=== PATIENT | female | born 1970 | race Caucasian/White ===

== ENCOUNTER → 2018-06-10 08:41 | Outpatient (CLI) | payer BC, SELFPAY | PROVIDERS: Family Provider Family Medicine; PCP Family Medicine; Visit Provider Internal Medicine | DX: I47.1 Supraventricular tachycardia (principal); R00.1 Bradycardia, unspecified; R06.09 Other forms of dyspnea; R07.89 Other chest pain; I48.0 Paroxysmal atrial fibrillation; J30.2 Other seasonal allergic rhinitis | CPT/HCPCS: 93017 ==

== ENCOUNTER 2020-04-24 16:10 | Emergency (ER) | payer BC, SELFPAY ==
[2020-04-24 17:00] VITALS: BP 123/73; PULSE 69; RESP 20; TEMP 36.8; O2SAT 98; BMI 30.9
--- NOTE | 2020-04-24 17:13 | HMH.EDUTC ---
[facility] Disposition Clinical Impression: Allergic reaction Qualifiers: Encounter type: initial encounter Qualified Code(s): T78.40XA - Allergy, unspecified, initial encounter Disposition: Home, Self-Care Condition on Discharge: Good Instructions: DI for General Allergic Reactions Additional Instructions: Avoid the offending substance. Follow up with your regular doctor. Take the steroids as directed. Don't start them until tomorrow since you had the shot here today. Take benedryl (diphenhydramine) regularly for the next couple of days. Be careful with the drowsiness side effect. IF YOU HAVE ANY WORSENING SYMPTOMS, SHORTNESS OF BREATH, WHEEZING, MOUTH SWELLING, ETC, RETURN IMMEDIATELY Prescriptions: methylPREDNISolone [Medrol] 4 mg PO DIRECTED 6 Days #21 tab.ds.pk Transmission Status: Received by [facility] Referrals: Lilli Villa [Primary Care Provider] - Time of Disposition: 17:19 Medical Decision Making - Medical Records Medical records reviewed: No: I reviewed the patient's medical records. - Rajinder Inquiry Pt receiving controlled substance: No Vital Signs: 04/24/20 17:00 04/24/20 17:15 Temperature 98.2 F 98.2 F Temperature Source Oral Pulse Rate 69 Pulse Rate [Right Brachial] 69 Respiratory Rate 20 20 Blood Pressure 123/73 Blood Pressure [Right Arm] 123/73 Blood Pressure Mean [Right Arm] 89 Blood Pressure Source [Right Arm] Automatic Cuff Blood Pressure Position [Right Arm] Sitting 02 Sat by Pulse Oximetry 98 Oxygen Delivery Method Room Air Orders (Tests/Meds): ED MEDICATIONS Discontinued Medications Generic Name Dose Route Start Last Admin Trade Name Lul PRN Reason Stop Dose Admin Methylprednisolone Sodium Succinate 125 mg 04/24/20 17:03 04/24/20 17:05 Solu-Medrol 125mg/2ml Vial IM 04/24/20 17:04 125 mg ONCE ONE Administration [facility] HPI - General Stated complaint: Possible reaction Time Seen by Provider: 04/24/20 17:13 Mode of Arrival: Ambulatory Source of Information: Patient Limitations: No Limitations Description of Symptoms (Recalled from Triage Doc. by RN): PATIENT C/O REDNESS, SWELLING, AND IRRITATION TO BILATERAL EYES HEENT Symptoms (Recalled from RN notes): Yes Resp Symptoms (Recalled from RN notes): No Skin Symptoms (Recalled from RN notes): No MS Symptoms (Recalled from RN notes): No Functional Status (Recalled from RN notes): WNL - History of Present Illness Provider Complaint: She c/o facial swelling around her eyes since approx 2 hours ago. She is allergic to cats. She went to her dad's house where he has several cats and she petted them. She denies any shortness of breath, wheezing, chest tightness, or mouth or lip swelling. - Related Data Home Medications Medication Instructions Recorded Confirmed aspirin 81 mg tablet,delayed 81 mg PO DAILY tab 06/08/18 release citalopram 40 mg tablet 40 mg PO DAILY tab 06/08/18 fexofenadine 180 mg tablet 180 mg PO DAILY tab 06/08/18 metoprolol succinate 50 mg 50 mg PO DAILY tab 06/08/18 tablet,extended release 24 hr montelukast 10 mg tablet 10 mg PO QPM 06/08/18 Previous Rx's Medication Instructions Recorded methylPREDNISolone [Medrol] 4 mg PO DIRECTED 6 Days #21 04/24/20 tab.ds.pk Allergies Allergy/AdvReac Type Severity Reaction Status Date / Time cephalexin [From Keflex] Allergy Mild Verified 06/08/18 11:12 Penicillins Allergy Mild Verified 06/08/18 11:12 - Worker's Comp Is this a Worker's Comp case?: No [facility] History - Hepatitis A Screen Drug use history?: No High risk sexual behaviors?: No History of sexually transmitted infection?: No Currently employed?: No Childcare worker?: No Do you have indoor plumbing?: Yes Do you have electricity?: Yes Attestation statement:: This patient has been screened for Hepatitis A risk factors. I have reviewed the patient's past medical history: Yes Medical History: Reports:: Palpitation
[2020-04-24 17:15] VITALS: BP 123/73; PULSE 69; RESP 20; TEMP 36.8; O2SAT 98
== END 2020-04-24 17:23 | disposition home or self-care (01) ==
PROVIDERS: Emergency Provider Nurse Practitioner Family; PCP Family Medicine
DX: J30.81 Allergic rhinitis due to animal (cat) (dog) hair and dander (principal); R00.2 Palpitations; Z88.0 Allergy status to penicillin; Z90.79 Acquired absence of other genital organ(s)
CPT/HCPCS: 96372; 99201

== ENCOUNTER → 2021-12-22 11:21 | Outpatient (CLI) | payer BC, SELFPAY | PROVIDERS: Visit Provider Nurse Practitioner | DX: U07.1 COVID-19 (principal) | CPT/HCPCS: C9803; U0003; U0005 ==

== ENCOUNTER → 2022-02-24 07:41 | Outpatient (CLI) | payer BC, SELFPAY ==
--- NOTE | 2022-02-24 07:42 | NM_ITS ---
APPROVED REPORT Exam: Nuclear Stress Test Indication: Chest pain, Family history Patient Location: Outpatient Stress Tech: Carolina Sims [place] Tech:Kaela Muniz, ARRT, RT (R)(N) Ht: 5 ft 4 in Wt: 190 lbs Bra Size: 42C HR: 61 bpm BP: 125/51 mmHg BSA: 1.91 m2 BMI: 32.6 History: Chest pain, Family history Procedure: Patient received a 0.4 mg of intravenous Lexiscan, resting heart rate 61 bpm, resting blood pressure 125/51 mmHg, with Lexiscan maximum heart rate achived was 93 bpm which is Less than 85 resting electrocardiogram shows sinus rhythm, with Lexiscan there is less than 1.5 mm % of the maximum predicted heart rate and blood pressure was 125/51 mmHg. With Lexiscan, patient denied any complaint of chest pain. Electrocardiogram ST segment depression noted from the baseline EKG. The EKG portion of the Lexiscan is nondiagnostic. Cardiac Stress and Resting SPECT Images: Cardiac Stress and Resting SPECT images were obtained using technetium 99m Myoview 32.5 mCi stress and 10.70 mCi at rest. Gated SPECT for analysis of segmental wall motion and calculation of the ejection fraction also done. Cardiac stress and resting SPECT images show uniform myocardial activity without segmental perfusion abnormality, compared to ejection fraction is 56% with no regional wall motion abnormality, right ventricle is normal size and contractility, there is transient ischemic dilatation of the left ventricle seen. Conclusion: 1. The EKG portion of the Lexiscan is nondiagnostic. 2. No scintigraphic evidence of reversible ischemia seen, computer derived ejection fraction is 56% with no regional wall motion abnormality, right ventricle is normal size and contractility, there is transient ischemic dilatation of the left ventricle seen, raising the concerns of presence of balanced ischemia, other causes for transient ischemic dilatation include hypertensive heart disease, microvascular disease and elevated left ventricular end-diastolic pressure. Clinical correlation is recommended. 3. Abnormal Lexiscan Myoview study. Electronically signed by : Thai Espinal MD 02/24/2022 19:03:51
--- NOTE | 2022-02-24 08:10 | CA_ITS ---
APPROVED REPORT EXAM: Comprehensive 2D, Doppler, and color-flow Echocardiogram Rerolling Machine Operator: Shakila Walters CRT Ht: 5 ft 4 in Wt: 193lbs BSA: 1.93 BP: 101/41 mmHg Indications: Chest Pain, Shortness of Breath, Palpitations 2D Dimensions LVOT 1.97 cm (M/F) 1.5-2.5 LA Volume 20.70 mL LA Volume Index 10.70 mL/m2 (M/F) 16-34 M-Mode Dimensions RVDd 1.94 cm (0.9-2.6) LA Diam 2.87 cm (1.9-4.0) LVDd 4.93 cm (3.5-5.7) Ao Diam 3.50 cm (2.0-3.7) LVDs 2.53 cm (3.5-5.7) IVSd 0.87 cm (0.6-1.1) PWd 0.53 cm (0.6-1.1) EF (Teich) 79.90% FS 48.70% EDV (Teich) 114.40 mL TAPSE 2.26 (<1.7) ESV (Teich) 23.00 mL LV Diastology E Decel Time 207.00 (160-240 msec) E/A Ratio 1.37 MED E' 7.10 (< 7 cm/sec) MED A' 7.10 cm/s E'/MED E' Ratio 11.37 (>14) LAT E' 9.50 (<10 cm/sec) LAT A' 9.20 cm/s E/LAT E' Ratio 8.49 (>14) Aortic Valve AO Peak GR. 6.80 mmHg Mitral Valve MV A Velocity 59.00 (40-130 cm/s) E/A Ratio 1.37 MV Decel. Time 207.00 (160-240 ms) Pulmonary Valve PV Peak Velocity 108.00 (50-150 cm/s) Tricuspid Valve TR P. Velocity 254.00 cm/s RAP Estimate 10.00 mmHg RVSP 35.70 mmHg Left Ventricle Left atrium is normal size, left ventricle is normal size, there is no concentric left ventricular hypertrophy, visually estimated ejection fraction 55% with no regional wall motion abnormality, diastolic parameters are within normal range. Right Ventricle Right atrium and right ventricular normal size and contractility. Aortic Valve Aortic valve is grossly normal there is no aortic stenosis or aortic insufficiency. Mitral Valve Mitral valve grossly normal, there is trace mitral regurgitation. Tricuspid Valve Tricuspid valve grossly normal, there is trace tricuspid regurgitation, tricuspid regurgitation jet velocity is inadequate for calculation of the right ventricular systolic pressure. Pulmonic Valve Pulmonic valve is poorly visualized. Great Vessels Aortic root is normal size. Inferior vena cava is normal size with normal inspiratory collapse. Pericardium No significant pericardial effusion. Conclusion 1. Normal left ventricular size, preserved left ventricular systolic function, visually estimated ejection fraction 55% with no regional wall motion abnormality, diastolic parameters are within normal range. 2. Trace mitral and tricuspid regurgitation. 3. No significant pericardial effusion noted. 4. Inferior vena cava is normal size with normal inspiratory collapse. Electronically signed by : Thai Espinal MD 02/24/2022 19:31:53
--- NOTE | 2022-02-24 09:06 | HMH.ITSHM ---
Current Home Medications as stated by this patient Kristy Jones or statement services representative. []MONTELUKAST METOPROLOL CITALOPRAM CETIRIZINE ASA
--- NOTE | 2022-02-24 09:22 | CA_ITS ---
APPROVED REPORT Exam: Pharmacologic Technologist: Carolina Huddleston, Ht: 5 ft 4 in Wt: 193 lbs BSA: 1.93 m2 HR: 62 bpm BP: 125/51 mmHg Medical History Medications: Aspirin,,,,, ZYRTEC,,,,, Celexa,,,,, Singulair,,,,, Metoprolol Succinate ER,,,,, Stress Test Details Test: LEXISCAN HR Resting HR: 61 bpm Max Heart Rate (APMHR): 167.751689 bpm Max HR Achieved: 93 bpm Target HR (85% APMHR): 141.372062 bpm % of APMHR: 55.69 Recovery HR: 75 bpm BP Resting BP: 125/51 mmHg Max BP: 125/51 mmHg Recovery BP: 118.0/69.0 mmHg ECG Resting ECG: NSR, T wave abn in lead III Clinical Exercise duration: 04:00 min Highest Stage Achieved: Stress ECG Conclusion Symptoms: Mild SOA & head discomfort. No CP. Arrhythmias/Ectopy: None. ST-T Changes: No significant changes. Conclusion: Unremarkable Lexiscan stress. Myoview images reported separately. Test Summary REST . . . . . . . Resting REST 02:36 . . 61 . 125/ 51 . . Stage 1 . . . . . . . Cardiolite injected Stage 1 01:00 . . 81 . . . . Stage 2 01:00 . . 85 . 112/ 70 . . Stage 3 01:00 . . 81 . 115/ 68 . . Stage 4 01:00 . . 76 . 116/ 70 . Stop exercise at 04:00 RECOVERY 01:00 . . 74 . . . . RECOVERY 02:00 . . 86 . 114/ 68 . . RECOVERY 03:00 . . 75 . 118/ 69 . . RECOVERY 03:15 . . 80 . 118/ 69 . . Electronically signed by : Thai Espinal MD 02/24/2022 19:00:56
== END ==
PROVIDERS: PCP Family Medicine; Visit Provider Physician Assistant
DX: R06.00 Dyspnea, unspecified (principal); R07.9 Chest pain, unspecified; I48.0 Paroxysmal atrial fibrillation; Z86.79 Personal history of other diseases of the circulatory system
CPT/HCPCS: 78452; 93017; 93306; A9502; J2785

== ENCOUNTER → 2022-03-03 09:36 | Outpatient (CLI) | payer BC, SELFPAY ==
[2022-03-03 10:46] LABS: Basophils # 0.1 K/mm3 (0-0.2); Basophils % 1.5 % (0.1-2.0); Eosinophils # 0.7 K/mm3 (0.0-0.4); Eosinophils % 9.9 % (0.1-12.0); Hematocrit 42.3 % (37.0-47.0); Hemoglobin 13.8 g/dL (12.2-16.2); Lymphocytes # 2.4 K/mm3 (0.7-4.5); Lymphocytes % 35.5 % (10-50); Mean Corpuscular HGB Conc 32.7 g/dL (31.8-35.4); Mean Corpuscular Hemoglobin 28.8 pg (27.0-31.2); Mean Corpuscular Volume 88.1 fl (81-99); Monocytes # 0.3 K/mm3 (0.1-1.0); Monocytes % 4.5 % (1.7-9.3); Neutrophils # 3.2 K/mm3 (1.8-7.8); Neutrophils % 48.7 % (37.0-80.0); Platelet Count 336 K/mm3 (142-424); Red Cell Distribution Width 13.6 % (11.5-17.5); White Blood Count 6.7 K/mm3 (4.8-10.8)
[2022-03-03 11:14] LABS: Blood Urea Nitrogen 13 mg/dl (7-17); Calcium 9.6 mg/dl (8.4-10.2); Carbon Dioxide 32 mmol/L (22.0-30.0); Estimated Glomerular Filt Rate 105 ml/min (>60); GFR (African American) 127 ML/MIN (>60); Glucose 99 mg/dl (74-100); Potassium 4.4 mmoL/L (3.5-5.1); Sodium 138 mmol/L (136-145)
[2022-03-03 11:44] LABS: Anion Gap 9.4 mEq/L (5-15); Chloride 101 mmol/L (98-107)
== END ==
PROVIDERS: PCP Family Medicine; Visit Provider Physician Assistant
DX: Z01.812 Encounter for preprocedural laboratory examination (principal); Z11.52 Encounter for screening for COVID-19; R06.00 Dyspnea, unspecified; R07.9 Chest pain, unspecified; I20.9 Angina pectoris, unspecified; R94.30 Abnormal result of cardiovascular function study, unspecified
CPT/HCPCS: 36415; 80048; 85025; C9803; U0003; U0005

== ENCOUNTER 2022-03-04 08:58 | Day surgery (SDC) | payer BC, SELFPAY ==
[2022-03-04] VITALS (12 sets, daily range): BP systolic 111–150; BP diastolic 69–100; PULSE 58–67; RESP 17–18; TEMP 36.7; O2SAT 93–97; BMI 32.9
--- NOTE | 2022-03-04 | IR_ITS ---
APPROVED REPORT Patient Location: Outpatient [employer] Applications Analyst: NAGI Tamez RT (R) PROCEDURES Left heart catheterization Left ventriculogram Selective coronary angiogram INDICATION Typical angina pectoris Informed consent was obtained prior to the procedure. COMPLICATIONS NONE Estimated Blood Loss: LESS THAN 10 ML TECHNIQUE One percent lidocaine used to anesthetize the right anterior aspect of the wrist. The right radial artery was accessed via the Seldinger technique. A 6 Uzbek sheath was placed in the right radial artery. 2.5 mg of verapamil, 800 mcg of nitroglycerin, 1mg Lidocaine and 5000 U Heparin were given through the arterial sheath. The papa catheter was also used to perform left heart catheterization, left ventriculogram and selective coronary angiogram. At the end of the procedure the sheath was removed good hemostasis was achieved using Traclet band, patient was transferred to the postop holding area in stable condition. ANGIOGRAPHIC RESULTS The left main artery Normal The left anterior descending artery Angiographically normal accompanied by ISRA II flow The circumflex artery Nondominant angiographically normal accompanied by ISRA II flow The right coronary artery Dominant angiographically normal accompanied by ISRA II flow The CABA ventriculogram reveals Normal 65% The left ventricular end-diastolic pressure 30 mmHg IMPRESSION Angiographically normal coronary arteries accompanied by ISRA II flow consistent with either endothelial dysfunction or more likely diastolic heart failure impeding coronary perfusion pressure Normal ejection fraction PLAN 1. Treatment of diastolic dysfunction which should alleviate the angina pectoris and improve coronary perfusion/flow 2. Risk factor modification 3. Recommend sleep study Electronically signed by : Leonid Ribera MD 03/04/2022 10:59:31
== END 2022-03-04 14:00 | disposition home or self-care (01) ==
LOC: CATHLAB 08:59
PROVIDERS: PCP Family Medicine; Visit Provider Internal Medicine
DX: I20.8 Other forms of angina pectoris (principal); R07.9 Chest pain, unspecified; R06.00 Dyspnea, unspecified; R94.30 Abnormal result of cardiovascular function study, unspecified; Z79.899 Other long term (current) drug therapy
CPT/HCPCS: 93458; 99152; C1725; C1760; C1769; J1644; Q9967

== ENCOUNTER 2022-07-26 09:27 | Emergency (ER) | payer BC, SELFPAY ==
[2022-07-26 09:52] VITALS: BP 130/80; PULSE 95; RESP 16; TEMP 37; O2SAT 98; BMI 31.4
[2022-07-26 09:55] LABS: UTC Strep Screen (Rapid) Negative (Negative)
--- NOTE | 2022-07-26 10:15 | EXP.UTC ---
Discharge Plan Disposition Patient Disposition: Home, Self-Care Condition: Good Prescriptions Prescriptions: New clindamycin HCl 300 mg capsule 300 mg PO Q8H 10 Days Qty: 30 0RF ondansetron 4 mg Tablet,Disintegrating 4 mg PO Q8H PRN (Reason: Nausea) Qty: 20 0RF No Action montelukast [Singulair] 10 mg tablet 10 mg PO QPM aspirin [Adult Low Dose Aspirin] 81 mg tablet,delayed release (DR/EC) 81 mg PO DAILY metoprolol succinate 50 mg tablet extended release 24 hr 50 mg PO DAILY citalopram [Celexa] 40 mg tablet 20 mg PO DAILY Zyrtec 10 mg capsule 10 mg PO DAILY PRN furosemide [Lasix] 40 mg tablet 40 mg PO DAILY spironolactone [Aldactone] 100 mg tablet 100 mg PO DAILY Referrals Follow up/Referrals: Malcom Villa MD [Primary Care Provider] - See instructions Activity Restrictions/Add. Instructions Additional Instructions/Restrictions: Drink plenty of fluids. Take tylenol or ibuprofen for pain or fever. Take the medications as directed. Follow up with your regular doctor. GO TO THE ER FOR ANY WORSENING SYMPTOMS Throw your tooth brush away and get a new one. Clinical Impressions Clinical Impression: Strep throat Instructions Patient Instructions: DI for Strep Throat Discharge ED Provider: Chirag Sahu [facility] General Stated complaint: sore throat Mode of Arrival: Ambulatory Source of Information: Patient Limitations: No Limitations Time Seen by Provider: 07/26/22 10:11 Description of Symptoms (Recalled from Triage Doc. by RN): pt c/o sore throat since yesterday HEENT Symptoms (Recalled from RN notes): Yes Resp Symptoms (Recalled from RN notes): No Skin Symptoms (Recalled from RN notes): No MS Symptoms (Recalled from RN notes): No Functional Status (Recalled from RN notes): n/a History of Present Illness Provider Complaint: SHe has had a cough, low grade fever and she has felt bad for the past 2 days. Related Data Home Medications Medication Instructions Recorded Confirmed aspirin 81 mg tablet,delayed 81 mg PO DAILY 06/08/18 03/26/22 release (Adult Low Dose Aspirin) metoprolol succinate 50 mg 50 mg PO DAILY 06/08/18 03/26/22 tablet,extended release 24 hr montelukast 10 mg tablet 10 mg PO QPM 06/08/18 03/26/22 (Singulair) cetirizine 10 mg capsule (Zyrtec) 10 mg PO DAILY PRN 02/11/22 03/26/22 citalopram 40 mg tablet (Celexa) 20 mg PO DAILY 02/11/22 03/26/22 furosemide 40 mg tablet (Lasix) 40 mg PO DAILY 03/26/22 03/26/22 spironolactone 100 mg tablet 100 mg PO DAILY 03/26/22 03/26/22 (Aldactone) Previous Rx's Medication Instructions Recorded clindamycin HCl 300 mg capsule 300 mg PO Q8H 10 days #30 caps 07/26/22 ondansetron 4 mg disintegrating 4 mg PO Q8H PRN Nausea #20 tabs 07/26/22 tablet Allergies Allergy/AdvReac Type Severity Reaction Status Date / Time cephalexin [From Keflex] Allergy Mild Verified 07/26/22 09:59 Penicillins Allergy Mild Verified 07/26/22 09:59 Worker's Comp Is this a Worker's Comp case?: No PFSH PFSH Social History Smoking Status: Never smoker alcohol intake: never substance use type: denies use current occupational status: employed household members: spouse housing: house caffeine: No ROS Obtained: Yes All systems reviewed & no additional complaints except as documented Constitutional Constitutional: Reports chills and Reports fever(s) Eyes Eyes: Denies eye discharge ENT Ears, Nose, Mouth, and Throat: Reports as per HPI Cardiovascular Cardiovascular: Denies chest pain Respiratory Respiratory: Denies chest congestion and Reports cough Gastrointestinal Gastrointestingal: Reports nausea; Denies abdominal pain, constipation, cramping, diarrhea or vomiting Musculoskeletal Musculoskeletal: Denies arthralgias Integumentary/Breasts Skin/Breast: Denies rash Neurologic Neurologic: Denies paresthes
[2022-07-26 10:31] VITALS: BP 130/80; PULSE 95; RESP 16; TEMP 37
== END 2022-07-26 10:34 | disposition home or self-care (01) ==
LOC: ER 09:29 → UTC 09:31
PROVIDERS: Emergency Provider Nurse Practitioner Family; PCP Family Medicine
DX: J02.9 Acute pharyngitis, unspecified (principal); R50.9 Fever, unspecified; R05.9 Cough, unspecified; R11.0 Nausea; Z79.82 Long term (current) use of aspirin; Z79.899 Other long term (current) drug therapy; Z88.0 Allergy status to penicillin; Z88.8 Allergy status to other drugs, medicaments and biological substances
CPT/HCPCS: 87880; 99213; G0463

== ENCOUNTER → 2022-09-24 10:05 | Outpatient (CLI) | payer BC, SELFPAY ==
[2022-09-24 11:24] LABS: Potassium 4.7 mmoL/L (3.5-5.1); Sodium 139 mmol/L (136-145)
[2022-09-24 11:25] LABS: Chloride 101 mmol/L (98-107)
[2022-09-24 11:27] LABS: Anion Gap 11.7 mEq/L (5-15); Calcium 9.2 mg/dl (8.4-10.2); Carbon Dioxide 31 mmol/L (22.0-30.0); Glucose 85 mg/dl (74-100)
[2022-09-24 11:28] LABS: Blood Urea Nitrogen 10 mg/dl (7-17); Estimated Glomerular Filt Rate 104 ml/min (>60); GFR (African American) 126 ML/MIN (>60)
== END ==
PROVIDERS: PCP Internal Medicine Adolescent Medicine; Visit Provider Physician Assistant
DX: I51.89 Other ill-defined heart diseases (principal)
CPT/HCPCS: 36415; 80048

== ENCOUNTER 2022-12-13 09:35 | Emergency (ER) | payer BC, SELFPAY ==
[2022-12-13 09:36] VITALS: BP 121/70; PULSE 71; RESP 20; TEMP 36.6; O2SAT 99; BMI 33.6
--- NOTE | 2022-12-13 09:58 | EXP.UTC ---
Discharge Plan Disposition Patient Disposition: Home, Self-Care Condition: Good Prescriptions Prescriptions: New phenazopyridine 200 mg Tablet 200 mg PO TID Qty: 6 0RF prednisone [prednisone] 20 mg tablet 20 mg PO BID 3 Days Qty: 6 0RF ondansetron 4 mg Tablet,Disintegrating 4 mg PO Q8H PRN (Reason: Nausea) Qty: 12 0RF sulfamethoxazole-trimethoprim [Bactrim DS] 800-160 mg Tablet 1 tab PO BID Qty: 14 0RF No Action montelukast [Singulair] 10 mg tablet 10 mg PO QPM aspirin [Adult Low Dose Aspirin] 81 mg tablet,delayed release (DR/EC) 81 mg PO DAILY metoprolol succinate 50 mg tablet extended release 24 hr 50 mg PO DAILY citalopram [Celexa] 40 mg tablet 20 mg PO DAILY Zyrtec 10 mg capsule 10 mg PO DAILY furosemide [Lasix] 40 mg tablet 40 mg PO DAILY PRN (Reason: edema) Qty: 90 3RF spironolactone [Aldactone] 100 mg tablet 100 mg PO DAILY Qty: 90 1RF Referrals Follow up/Referrals: Adams Nichole MD [Primary Care Provider] - See instructions Activity Restrictions/Add. Instructions Additional Instructions/Restrictions: Drink plenty of fluids. Take tylenol or ibuprofen for pain or fever. Take the medications as directed. Follow up with your regular doctor. GO TO THE ER FOR ANY WORSENING SYMPTOMS The pyridium will make your urine turn orange, this is an expected side effect. It will stain your clothes if it comes into contact with them. We will culture the urine. That will tell what bacteria is causing your infection and which antibiotics will treat it best. Sometimes the first antibiotic we prescribe turns out to not work against different bacteria. So, make sure you follow up within 3 days if you are not getting better. Clinical Impressions Clinical Impression: UTI (urinary tract infection), Sinusitis Instructions Patient Instructions: Urinary Tract Infection, Urine Culture, DI for Sinusitis, DI for Urinary Tract Infection (UTI), Phenazopyridine Discharge ED Provider: Chirag Sahu [facility] General Stated complaint: pain when urinating,frequency, headache,drainage Time Seen by Provider: 12/13/22 09:58 History of Present Illness Provider Complaint: She states that for the past 3 days she has had burning with urination, urinary frequency, and low back pain. She has also has had sinus congestion, sore throat and a cough. Related Data Home Medications Medication Instructions Recorded Confirmed aspirin 81 mg tablet,delayed 81 mg PO DAILY 06/08/18 09/24/22 release (Adult Low Dose Aspirin) metoprolol succinate 50 mg 50 mg PO DAILY 06/08/18 09/24/22 tablet,extended release 24 hr montelukast 10 mg tablet 10 mg PO QPM 06/08/18 09/24/22 (Singulair) citalopram 40 mg tablet (Celexa) 20 mg PO DAILY 02/11/22 09/24/22 cetirizine 10 mg capsule (Zyrtec) 10 mg PO DAILY 09/24/22 09/24/22 Previous Rx's Medication Instructions Recorded furosemide 40 mg tablet (Lasix) 40 mg PO DAILY PRN edema #90 tabs 09/24/22 spironolactone 100 mg tablet 100 mg PO DAILY #90 tabs 11/05/22 (Aldactone) ondansetron 4 mg disintegrating 4 mg PO Q8H PRN Nausea #12 tabs 12/13/22 tablet phenazopyridine 200 mg tablet 200 mg PO TID #6 tabs 12/13/22 prednisone 20 mg tablet 20 mg PO BID 3 days #6 tabs 12/13/22 sulfamethoxazole 800 1 tab PO BID #14 tabs 12/13/22 mg-trimethoprim 160 mg tablet (Bactrim DS) Allergies Allergy/AdvReac Type Severity Reaction Status Date / Time cephalexin [From Keflex] Allergy Mild Verified 12/13/22 10:01 Penicillins Allergy Mild Verified 12/13/22 10:01 [facility] Disclaimer: The information contained in this section may have been updated after the patient was seen, as this information can be updated by other users. Social History Smoking Status: Never smoker alcohol intake: never substance use type: denies use current occupational status: employed [employer]
[2022-12-13 10:01] LABS: Apearance,Urine Clear (Clear); Color,Urine Yellow (Yellow)
[2022-12-13 10:02] LABS: Bilirubin,Urine Negative (Negative); Blood, Urine Trace (Negative); Glucose,Urine (UA) Negative (Negative); Ketones,Urine Negative (Negative); Protein,Urine Negative (Negative); Specific Gravity, Urine 1.005 (1.005-1.030); UTC Leukocyte Esterase,Urine 3+ (Negative); UTC Nitrate,Urine Negative (Negative); Urobilinogen,Urine 0.2 EU/dl (0.2)
[2022-12-13 10:30] VITALS: BP 121/70; PULSE 71; RESP 19; TEMP 36.6; O2SAT 99
== END 2022-12-13 10:30 | disposition home or self-care (01) ==
PROVIDERS: Emergency Provider Nurse Practitioner Family; PCP Internal Medicine Adolescent Medicine
DX: N39.0 Urinary tract infection, site not specified (principal); J32.9 Chronic sinusitis, unspecified
CPT/HCPCS: 81003; 87086; 87088; 87186; 99212; 99213; G0463

== ENCOUNTER → 2023-02-16 08:07 | Outpatient (CLI) | payer BC, SELFPAY ==
[2023-02-16 08:30] LABS: Basophils # 0.1 K/mm3 (0-0.2); Basophils % 1.3 % (0.1-2.0); Eosinophils # 0.8 K/mm3 (0.0-0.4); Eosinophils % 10.9 % (0.1-12.0); Hematocrit 42.7 % (37.0-47.0); Hemoglobin 13.6 g/dL (12.2-16.2); Lymphocytes # 2.4 K/mm3 (0.7-4.5); Lymphocytes % 30.8 % (10-50); Mean Corpuscular HGB Conc 31.7 g/dL (31.8-35.4); Mean Corpuscular Hemoglobin 27.4 pg (27.0-31.2); Mean Corpuscular Volume 86.4 fl (81-99); Mean Platelet Volume 8.7 fl (7.4-10.4); Monocytes # 0.4 K/mm3 (0.1-1.0); Monocytes % 5.6 % (1.7-9.3); Neutrophils # 3.9 K/mm3 (1.8-7.8); Neutrophils % 51.3 % (37.0-80.0); Platelet Count 378 K/mm3 (142-424); Red Blood Count 4.94 M/mm3 (4.20-5.40); Red Cell Distribution Width 13.7 % (11.5-17.5); White Blood Count 7.6 K/mm3 (4.8-10.8)
[2023-02-16 08:48] LABS: Glucose,Fasting 106 mg/dl (74-100)
[2023-02-16 08:51] LABS: Hemoglobin A1C 5.8 % (4.0-6.0)
[2023-02-16 09:05] LABS: Alanine Aminotransferase 40 U/L (12-78); Albumin Level 4.2 g/dl (3.5-5.0); Albumin/Globulin Ratio 1.5 (1.1-1.8); Alkaline Phosphatase 127 U/L (38-126); Anion Gap 11.7 mEq/L (5-15); Aspartate Amino Transferase 33 U/L (14-36); Bilirubin,Total 0.5 mg/dl (0.2-1.3); Blood Urea Nitrogen 9 mg/dl (7-17); Carbon Dioxide 28 mmol/L (22.0-30.0); Chloride 104 mmol/L (98-107); Estimated Glomerular Filt Rate 129 ml/min (>60); GFR (African American) 156 ML/MIN (>60); Globulin 2.8 g/dL (1.3-3.2); Glucose 101 mg/dl (74-100); Potassium 4.7 mmoL/L (3.5-5.1); Sodium 139 mmol/L (136-145)
[2023-02-16 09:22] LABS: 25-OH Vitamin D, Total 25.6 ng/mL (30-100)
[2023-02-16 09:24] LABS: Free Thyroxine Index 1.6 ug/dL (5.93-13.13); T4 (Thyroxine) 6.1 ug/dl (5.53-11.0); Triiodothryronine (T3) Uptake 27 % (23.5-40.5)
[2023-02-16 09:36] LABS: Thyroid Stimulating Hormone 1.91 uIU/mL (0.465-4.68)
[2023-02-16 09:56] LABS: Vitamin B12 225 pg/mL (239-931)
[2023-02-16 10:35] LABS: Glucose 1 Hour 211 mg/dL (74-100)
[2023-02-16 11:21] LABS: Glucose 2 Hour 171 mg/dL (74-100)
[2023-02-16 12:55] LABS: Glucose 3 Hour 82 mg/dL (74-100)
[2023-02-17 12:06] LABS: Insulin Level Total 25.6 uIU/mL (2.6-24.9)
== END ==
PROVIDERS: PCP Internal Medicine Adolescent Medicine; Visit Provider Internal Medicine Adolescent Medicine
DX: L65.9 Nonscarring hair loss, unspecified (principal); Z86.39 Personal history of other endocrine, nutritional and metabolic disease
CPT/HCPCS: 36415; 80053; 82306; 82607; 82951; 83036; 83525; 84436; 84443; 84479; 85025

== ENCOUNTER 2023-06-12 09:37 | Emergency (ER) | payer BC, SELFPAY ==
[2023-06-12 09:38] VITALS: BP 114/77; PULSE 85; RESP 18; TEMP 37; O2SAT 95; BMI 33.7
--- NOTE | 2023-06-12 10:07 | EXP.UTC ---
Discharge Plan Disposition Patient Disposition: Home, Self-Care Condition: Good Prescriptions Prescriptions: No Action montelukast [Singulair] 10 mg tablet 10 mg PO QPM aspirin [Adult Low Dose Aspirin] 81 mg tablet,delayed release (DR/EC) 81 mg PO DAILY metoprolol succinate 50 mg tablet extended release 24 hr 50 mg PO DAILY Zyrtec 10 mg capsule 10 mg PO DAILY furosemide [Lasix] 40 mg tablet 40 mg PO DAILY PRN (Reason: edema) Qty: 90 3RF bupropion HCl 150 mg tablet extended release 24 hr 150 mg PO DAILY Wegovy 1 mg/0.5 mL pen injector 1 mg SQ Q7D Qty: 2 0RF Vraylar 1.5 mg capsule 1.5 mg PO DAILY citalopram 20 mg tablet 20 mg PO DAILY spironolactone 25 mg tablet 25 mg PO DAILY Qty: 90 1RF ondansetron 4 mg Tablet,Disintegrating 4 mg PO Q8H PRN (Reason: Nausea) Qty: 12 0RF Referrals Follow up/Referrals: Adams Nichole MD [Primary Care Provider] - See instructions Activity Restrictions/Add. Instructions Additional Instructions/Restrictions: Drink plenty of fluids. Take tylenol for pain or fever. Follow up with your regular doctor. GO TO THE ER FOR ANY WORSENING SYMPTOMS Clinical Impressions Clinical Impression: Viral syndrome Instructions Patient Instructions: DI for Viral Syndrome Discharge ED Provider: Chirag Sahu [facility] [place] HPI General Stated complaint: Sore Throat, cough Mode of Arrival: Ambulatory Source of Information: Patient Limitations: No Limitations Time Seen by Provider: 06/12/23 10:07 Description of Symptoms (Recalled from Triage Doc. by RN): Patient reports sore throat, cough and runny nose since yesterday. States she did have the shingles vaccine on Wednesday but thinks this is not related. HEENT Symptoms (Recalled from RN notes): Yes Resp Symptoms (Recalled from RN notes): No Skin Symptoms (Recalled from RN notes): No MS Symptoms (Recalled from RN notes): No Functional Status (Recalled from RN notes): wnl History of Present Illness Provider Complaint: She states that for the past 4 days she has felt achy and had sinus congestion. Related Data Home Medications Medication Instructions Recorded Confirmed aspirin 81 mg tablet,delayed 81 mg PO DAILY 06/08/18 05/26/23 release (Adult Low Dose Aspirin) metoprolol succinate 50 mg 50 mg PO DAILY 06/08/18 05/26/23 tablet,extended release 24 hr montelukast 10 mg tablet 10 mg PO QPM 06/08/18 05/26/23 (Singulair) cetirizine 10 mg capsule (Zyrtec) 10 mg PO DAILY 09/24/22 05/26/23 cariprazine 1.5 mg capsule 1.5 mg PO DAILY 03/25/23 05/26/23 (Vraylar) citalopram 20 mg tablet 20 mg PO DAILY 03/25/23 05/26/23 bupropion HCl 150 mg 24 hr tablet, 150 mg PO DAILY 05/26/23 05/26/23 extended release Previous Rx's Medication Instructions Recorded furosemide 40 mg tablet (Lasix) 40 mg PO DAILY PRN edema #90 tabs 09/24/22 ondansetron 4 mg disintegrating 4 mg PO Q8H PRN Nausea #12 tabs 12/13/22 tablet spironolactone 25 mg tablet 25 mg PO DAILY #90 tabs 03/25/23 semaglutide (weight loss) 1 mg/0.5 1 mg (0.5 mL) SQ Q7D #2 mL 05/26/23 mL subcutaneous pen injector (Annabel) Allergies Allergy/AdvReac Type Severity Reaction Status Date / Time cephalexin [From Keflex] Allergy Mild Verified 05/26/23 11:23 Penicillins Allergy Mild Verified 05/26/23 11:23 Worker's Comp Is this a Worker's Comp case?: No [facility] Disclaimer: The information contained in this section may have been updated after the patient was seen, as this information can be updated by other users. Social History Smoking Status: Never smoker alcohol intake: never substance use type: denies use current occupational status: employed Travel in the last 8 weeks: None household members: spouse housing: house caffeine: No ROS Obtained: Yes All systems reviewed & no additional complaints except as documented [employer]
[2023-06-12 10:09] LABS: UTC Strep Screen (Rapid) Negative (Negative)
[2023-06-12 10:27] VITALS: BP 114/77; PULSE 85; RESP 18; TEMP 37; O2SAT 95
== END 2023-06-12 10:28 | disposition home or self-care (01) ==
PROVIDERS: Emergency Provider Nurse Practitioner Family; PCP Internal Medicine Adolescent Medicine
DX: B34.9 Viral infection, unspecified (principal); R05.9 Cough, unspecified; R09.81 Nasal congestion
CPT/HCPCS: 87880; 99212; 99213; G0463

== ENCOUNTER 2023-06-27 12:31 | Emergency (ER) | payer BC, SELFPAY ==
[2023-06-27 12:32] VITALS: BP 126/70; PULSE 70; RESP 18; TEMP 36.8; O2SAT 98; BMI 34.3
--- NOTE | 2023-06-27 13:04 | EXP.UTC ---
Discharge Plan Disposition Patient Disposition: Home, Self-Care Condition: Good Prescriptions Prescriptions: New methylprednisolone 4 mg Tablets,Dose Pack 4 mg PO DIRECTED Qty: 21 0RF triamcinolone acetonide 0.1 % cream 1 applic topical BID PRN (Reason: itching) Qty: 30 0RF No Action montelukast [Singulair] 10 mg tablet 10 mg PO QPM aspirin [Adult Low Dose Aspirin] 81 mg tablet,delayed release (DR/EC) 81 mg PO DAILY metoprolol succinate 50 mg tablet extended release 24 hr 50 mg PO DAILY Zyrtec 10 mg capsule 10 mg PO DAILY furosemide [Lasix] 40 mg tablet 40 mg PO DAILY PRN (Reason: edema) Qty: 90 3RF bupropion HCl 150 mg tablet extended release 24 hr 150 mg PO DAILY Wegovy 1 mg/0.5 mL pen injector 1 mg SQ Q7D Qty: 2 0RF Vraylar 1.5 mg capsule 1.5 mg PO DAILY citalopram 20 mg tablet 20 mg PO DAILY spironolactone 25 mg tablet 25 mg PO DAILY Qty: 90 1RF ondansetron 4 mg Tablet,Disintegrating 4 mg PO Q8H PRN (Reason: Nausea) Qty: 12 0RF Referrals Follow up/Referrals: Adams Nichole MD [Primary Care Provider] - See instructions Activity Restrictions/Add. Instructions Additional Instructions/Restrictions: Try to identify and avoid contact with the offending substance. Don't put the topical steroids (triamcinolone) on your face or your groin. Follow up with your regular doctor. GO TO THE ER FOR ANY WORSENING SYMPTOMS OR CONCERNS Clinical Impressions Clinical Impression: Allergic reaction Instructions Patient Instructions: Methylprednisolone Discharge ED Provider: Chirag Sahu [facility] General Stated complaint: rash on belly and side Time Seen by Provider: 06/27/23 13:04 History of Present Illness Provider Complaint: She states that for the past 3 days she has had an itchy rash on her abdomen. She denies any known exposure to any allergens. Related Data Home Medications Medication Instructions Recorded Confirmed aspirin 81 mg tablet,delayed 81 mg PO DAILY 06/08/18 05/26/23 release (Adult Low Dose Aspirin) metoprolol succinate 50 mg 50 mg PO DAILY 06/08/18 05/26/23 tablet,extended release 24 hr montelukast 10 mg tablet 10 mg PO QPM 06/08/18 05/26/23 (Singulair) cetirizine 10 mg capsule (Zyrtec) 10 mg PO DAILY 09/24/22 05/26/23 cariprazine 1.5 mg capsule 1.5 mg PO DAILY 03/25/23 05/26/23 (Vraylar) citalopram 20 mg tablet 20 mg PO DAILY 03/25/23 05/26/23 bupropion HCl 150 mg 24 hr tablet, 150 mg PO DAILY 05/26/23 05/26/23 extended release Previous Rx's Medication Instructions Recorded furosemide 40 mg tablet (Lasix) 40 mg PO DAILY PRN edema #90 tabs 09/24/22 ondansetron 4 mg disintegrating 4 mg PO Q8H PRN Nausea #12 tabs 12/13/22 tablet spironolactone 25 mg tablet 25 mg PO DAILY #90 tabs 03/25/23 semaglutide (weight loss) 1 mg/0.5 1 mg (0.5 mL) SQ Q7D #2 mL 05/26/23 mL subcutaneous pen injector (Sky StoragelindaFirethorn) methylprednisolone 4 mg tablets in 4 mg PO DIRECTED #21 tabs 06/27/23 a dose pack triamcinolone acetonide 0.1 % 1 applic topical BID PRN itching 06/27/23 topical cream #30 grams Allergies Allergy/AdvReac Type Severity Reaction Status Date / Time cephalexin [From Keflex] Allergy Mild Verified 05/26/23 11:23 Penicillins Allergy Mild Verified 05/26/23 11:23 PFSH PFSH Disclaimer: The information contained in this section may have been updated after the patient was seen, as this information can be updated by other users. Social History Smoking Status: Never smoker alcohol intake: never substance use type: denies use current occupational status: employed Travel in the last 8 weeks: None household members: spouse housing: house caffeine: No ROS Obtained: Yes All systems reviewed & no additional complaints except as documented Constitutional Constitutional: Denies chills and Denies fever(s) Eye
[2023-06-27 13:40] VITALS: BP 126/70; PULSE 70; RESP 18; TEMP 36.8; O2SAT 98
== END 2023-06-27 13:41 | disposition home or self-care (01) ==
PROVIDERS: Emergency Provider Nurse Practitioner Family; PCP Internal Medicine Adolescent Medicine
DX: T78.40XA Allergy, unspecified, initial encounter (principal)
CPT/HCPCS: 99212; 99214; G0463

== ENCOUNTER → 2023-07-20 10:10 | Outpatient (POV) | payer BC, SELFPAY | PROVIDERS: Visit Provider Specialist/Technologist | DX: Z00.00 Encounter for general adult medical examination without abnormal findings (principal) ==

== ENCOUNTER → 2023-10-07 09:23 | Outpatient (CLI) | payer BC, SELFPAY ==
--- NOTE | 2023-10-07 09:26 | XR_ITS ---
FINAL REPORT TECHNIQUE: Bone densitometry calculations of the lumbar spine, right hip and left hip were obtained. CLINICAL HISTORY: POST MENOPAUSAL FINDINGS: Using L1-4, the bone mineral density of the spine is 0.838 g/cm2, corresponding to T-score of -1.9 and a Z score of -0.8. This is within the range of osteopenia. Using the left hip, the bone mineral density of the femoral neck is 0.759 g/cm2, corresponding to a T-score of -0.8 and a Z-score of 0.2. This is within the range of normal. Using the right hip, the bone mineral density of the femoral neck is 0.788 g/cm2, corresponding to a T-score of -0.5 and a Z-score of 0.5. This is within the range of normal. FRAX 10 year fracture risk is 5.3% for a hip fracture and 0.2% for a major osteoporotic fracture. NOTE: T-score: Standard deviation compared with peak bone mass of young adult mean. *Following the recommendations of the International Society of Bone densitometry, classification of hip BMD is based on the lower of two T-scores; total hip or femoral neck. IMPRESSION: 1. Bone mineral density of the lumbar spine within the range of osteopenia. 2. Bone mineral density of the left femoral neck within the range of normal. 3. Bone mineral density of the right femoral neck within the range of normal. Reviewed, Interpreted and Dictated by Sumi Andrade MD Transcribed by Dulce Ellis Authenticated and [facility]
== END ==
LOC: RAD 09:24
PROVIDERS: PCP Internal Medicine Adolescent Medicine; Visit Provider Internal Medicine Adolescent Medicine
DX: Z78.0 Asymptomatic menopausal state (principal)
CPT/HCPCS: 77080

== ENCOUNTER → 2023-11-03 08:08 | Outpatient (CLI) | payer BC, SELFPAY ==
--- NOTE | 2023-11-03 08:16 | MM_ITS ---
PROCEDURE INFORMATION: Exam: MG Bilateral Screening 3D Mammography Exam date and time: 11/03/2023 8:07 AM Age: 53 years old Clinical indication: Screening examination TECHNIQUE: Imaging protocol: Bilateral Screening tomosynthesis and 2D mammography including computer-aided detection (CAD) when performed. COMPARISON: 1. MG MARIN SCRN MAMMO W/CAD BILAT 08/19/2022 8:47 AM 2. MG MARIN SCRN MAMMO W/CAD BILAT 02/26/2021 8:30 AM FINDINGS: MAMMOGRAPHY: Breast composition: There are scattered areas of fibroglandular density. Mass: None. Architectural distortion: None. Calcifications: No suspicious calcifications. Asymmetric density: None. Skin thickening: None. Axillary adenopathy: None. IMPRESSION: No mammographic evidence of malignancy. Annual screening is recommended unless otherwise clinically indicated. ASSESSMENT: BI-RADS Category 1: Negative
== END ==
PROVIDERS: PCP Internal Medicine Adolescent Medicine; Visit Provider Obstetrics & Gynecology Gynecology
DX: Z12.31 Encounter for screening mammogram for malignant neoplasm of breast (principal)
CPT/HCPCS: 77063; 77067

== ENCOUNTER 2024-11-25 12:56 | Emergency (ER) | payer BC, SELFPAY ==
[2024-11-25 13:52] VITALS: BP 122/62; PULSE 74; RESP 20; TEMP 36.8; O2SAT 97; BMI 31.4
--- NOTE | 2024-11-25 14:08 | EXP.UTC ---
Discharge Plan Disposition Patient Disposition: Home, Self-Care Condition: Good Prescriptions Prescriptions: New benzonatate 100 mg capsule 100 mg PO TIDP PRN (Reason: Cough) Qty: 30 0RF methylprednisolone 4 mg Tablets,Dose Pack 4 mg PO DIRECTED 6 Days Qty: 21 0RF Rx Instructions: Take 1 pack as directed for 6 days azithromycin [Zithromax] 250 mg tablet 250 mg PO UD DOSE PK Qty: 6 0RF Rx Instructions: Take two (2) tablets today, then one (1) tablet days #2 thru #5 No Action montelukast [Singulair] 10 mg tablet 10 mg PO QPM aspirin [Adult Low Dose Aspirin] 81 mg tablet,delayed release (DR/EC) 81 mg PO DAILY metoprolol succinate 50 mg tablet extended release 24 hr 50 mg PO DAILY Zyrtec 10 mg capsule 10 mg PO DAILY furosemide [Lasix] 40 mg tablet 40 mg PO DAILY PRN (Reason: edema) Qty: 90 3RF bupropion HCl 150 mg tablet extended release 24 hr 150 mg PO DAILY Wegovy 1 mg/0.5 mL pen injector 1 mg SQ Q7D Qty: 2 0RF estradiol 0.01 % (0.1 mg/gram) cream 1 appful vaginal .Biweekly Patient Comments: USE DIRECTED intravaginally TWICE A WEEK Vraylar 1.5 mg capsule 1.5 mg PO DAILY citalopram 20 mg tablet 20 mg PO DAILY spironolactone 25 mg tablet 25 mg PO DAILY Qty: 90 3RF triamcinolone acetonide 0.1 % cream 1 applic topical BID PRN (Reason: itching) Qty: 30 0RF Referrals Follow up/Referrals: Adams Nichole MD [Primary Care Provider] - See instructions Activity Restrictions/Add. Instructions Additional Instructions/Restrictions: Drink plenty of fluids. Take tylenol or ibuprofen for pain or fever. Take the medications as directed. Follow up with your regular doctor. GO TO THE ER FOR ANY WORSENING SYMPTOMS Clinical Impressions Clinical Impression: Sinusitis, Bronchitis Instructions Patient Instructions: Sinusitis, DI for Sinusitis Print Language Print Language: Vincentian Discharge ED Provider: Chirag Sahu [facility] General Stated complaint: chest congestion, cough, headache Mode of Arrival: Ambulatory Source of Information: Patient Time Seen by Provider: 11/25/24 14:08 Description of Symptoms (Recalled from Triage Doc. by RN): YELLOW DRAINAGE, SAENZ, SOB, CONGESTION HEENT Symptoms (Recalled from RN notes): Yes Resp Symptoms (Recalled from RN notes): Yes Skin Symptoms (Recalled from RN notes): No MS Symptoms (Recalled from RN notes): No Functional Status (Recalled from RN notes): WNL Related Data Home Medications ?Medication ?Instructions ?Recorded ?Confirmed aspirin 81 mg tablet,delayed 81 mg PO DAILY 06/08/18 11/25/24 release (Adult Low Dose Aspirin) metoprolol succinate 50 mg 50 mg PO DAILY 06/08/18 11/25/24 tablet,extended release 24 hr montelukast 10 mg tablet 10 mg PO QPM 06/08/18 11/25/24 (Singulair) cetirizine 10 mg capsule (Zyrtec) 10 mg PO DAILY 09/24/22 11/25/24 cariprazine 1.5 mg capsule 1.5 mg PO DAILY 03/25/23 07/20/23 (Vraylar) citalopram 20 mg tablet 20 mg PO DAILY 03/25/23 11/25/24 bupropion HCl 150 mg 24 hr tablet, 150 mg PO DAILY 05/26/23 11/25/24 extended release estradiol 0.01% (0.1 mg/gram) 1 appful vaginal .Biweekly 07/20/23 07/20/23 vaginal cream Previous Rx's ?Medication ?Instructions ?Recorded furosemide 40 mg tablet (Lasix) 40 mg PO DAILY PRN edema #90 tabs 09/24/22 semaglutide (weight loss) 1 mg/0.5 1 mg (0.5 mL) SQ Q7D #2 mL 05/26/23 mL subcutaneous pen injector (Welindavy) triamcinolone acetonide 0.1 % 1 applic topical BID PRN itching 06/27/23 topical cream #30 grams spironolactone 25 mg tablet 25 mg PO DAILY #90 tabs 10/14/23 azithromycin 250 mg tablet 250 mg PO UD DOSE PK #6 tabs 11/25/24 (Zithromax) benzonatate 100 mg capsule 100 mg PO TIDP PRN Cough #30 caps 11/25/24 methylprednisolone 4 mg tablets in 4 mg PO DIRECTED 6 days #21 tabs 11/25/24 a dose pack Allergies Allergy/AdvReac Type Severity Reaction Status Date / Time cephalexin (From Keflex) Allergy Mild Verified 07/20/23 10:22 Penicillins Allergy Mild Verified 07/20/23 10:22 Worker's Comp Is this a Worker's Comp case?: No [facility] Disclaimer: The information contained in this section may have been updated after the patient was seen, as this information can be updated by other users. Medical History (Updated 11/25/24 @ 15:06 by Chirag Sahu APRN) Sensorineural hearing loss Congestion of both ears Social History Smoking Status: Never smoker alcohol intake: never substance use type: denies use current occupational status: employed Travel in the last 8 weeks: None household members: spouse housing: house caffeine: No Have you lived/traveled outside US in past 30 days?: No Contact w/someone who lives/traveled outside US past 30 days?: No Exposure to someone with infectious disease in past 14 days?: No Do you have a fever (greater than 100.4 F or 38 C)?: No Have you tested positive for COVID-19: No Exposed to someone with COVID-19 in past 14 days?: No Do you have a sore throat?: Yes Do you have a cough?: Yes Do you have any weakness?: No Do you have any diarrhea?: No Are you experiencing any unusual bleeding?: No Do you have any muscle aches/pain?: No Do you have any abdominal pain?: No Are you experiencing loss of taste or smell?: No ROS Obtained: Yes All systems reviewed & no additional complaints except as documented Constitutional Constitutional: Reports poor appetite Eyes Eyes: Reports system reviewed and no additional complaints, except as documented ENT Ears, Nose, Mouth, and Throat: Reports as per HPI Cardiovascular Cardiovascular: Reports system reviewed and no additional complaints, except as documented and Denies chest pain Respiratory Respiratory: Denies shortness of breath, Denies chest congestion, Reports cough, Denies stridor and Denies wheezing Gastrointestinal Gastrointestingal: Reports system reviewed and no additional complaints, except as documented; Denies abdominal pain, diarrhea or vomiting Musculoskeletal Musculoskeletal: Reports system reviewed and no additional complaints, except as documented and Denies arthralgias Integumentary/Breasts Skin/Breast: Reports system reviewed and no additional complaints, except as documented and Denies rash Neurologic Neurologic: Denies paresthesias Allergic/Immunologic Allergic/Immunologic: Denies wheezing Physical Exam General General appearance: alert and in no apparent distress Eye Eye exam: Present normal appearance, PERRL and EOMI ENT ENT exam: Present mucous membranes moist and normal external ear exam Expanded ENT Exam External ear exam: Present normal external inspection TM/Canal exam: Bilateral TM: erythema and bulging Nose exam: Absent sinus tenderness Nasal speculum exam: Bilateral: normal Mouth exam: Present normal external inspection; Absent drooling Teeth exam: Present normal inspection Throat exam: Present tonsillar erythema and tonsillomegaly Neck Neck exam: Present normal inspection, full ROM and trachea midline; Absent tenderness, lymphadenopathy or thyromegaly Chest Chest inspection: Present normal inspection and symmetric chest wall rise; Absent tenderness or rash Respiratory Respiratory exam: Present normal lung sounds bilaterally; Absent respiratory distress, wheezes, stridor or accessory muscle use Cardiovascular Cardiovascular exam: Present regular rate, normal rhythm and normal heart sounds Abdominal Exam Abdominal exam: Present soft; Absent distention, tenderness, guarding, rebound or rigidity Extremities Exam Extremities exam: Present normal inspection, full ROM and normal capillary refill; Absent tenderness or calf tenderness Back Exam Back exam: Present normal inspection and full ROM; Absent tenderness Neurological Exam Neurological exam: Present alert and oriented X3 Psychiatric Psychiatric exam: Present normal affect and normal mood Skin Skin exam: Present warm, dry, intact and normal color Lymphatic Lymphatic Findings: no adenopathy Medical Decision Making Medical Records Medical records reviewed: No I reviewed the patient's medical records. Screening: Per USPSTF and CDC recommendations, given the prevalence of disease in our region, it is our hospital?s policy to screen for HIV and viral Hepatitis for all patients aged 18 and over and those with ongoing risk factors. Rajinder Inquiry Pt receiving controlled substance: No Vital Signs: 11/25/24 13:52 Temperature 98.2 F Temperature Source Oral Pulse Rate [Left Radial] 74 Respiratory Rate 20 Blood Pressure [Left Arm] 122/62 Blood Pressure Mean [Left Arm] 82 02 Sat by Pulse Oximetry 97 Lab Data Lab results reviewed: Yes I reviewed the patient's lab results.
[2024-11-25 15:06] VITALS: BP 122/62; PULSE 74; RESP 20; TEMP 36.8
[2024-11-25 15:14] LABS: Coronavirus 19, PCR Not Detected (NotDetected); Human Rhinovirus Not Detected (NotDetected); Influenza A, PCR Not Detected (NotDetected); Influenza B, PCR Not Detected (NotDetected); Respiratory Syncytial Virus Not Detected (NotDetected)
== END 2024-11-25 15:12 | disposition home or self-care (01) ==
PROVIDERS: Emergency Provider Nurse Practitioner Family; PCP Internal Medicine Adolescent Medicine
DX: J01.90 Acute sinusitis, unspecified (principal); J20.9 Acute bronchitis, unspecified
CPT/HCPCS: 87631; 99213; G0381

== ENCOUNTER 2025-05-07 16:57 | Outpatient (CLI) | payer BC, SELFPAY ==
--- OUTSIDE RECORDS SUMMARY | 2025-05-07 17:00 | XMS_ITS | Encounter Summary ---
Author Organization Healthcare Address [address] [place] [address] Care Team Providers Care Hammer Adjuster Name Role Phone Liseth Kaba [employer] Primary Care Provider [phone]- [phone] Reason for Referral * Consultation (Routine) - Closed Specialty Diagnoses / Procedures Referred By Misty edward Referred To Contact Pediatric Allergy Diagnoses Recurrent urticaria Liseth Kaba, [employer] [address] [address] Phone: tel: fax: [facility] [address] [place] [address] Phone: tel: fax: Referral ID Status Reason Start Date Expiration Date V isits Requested Visits Authorized [id number] Closed Specialty Services Required 08/26/2023 02/24/2025 1 1 Encounter Details Date Type Department Care Team (Late st Contact Info) Description 08/26/2023 Community Orders [facility] [address] [place] [address] Liseth Kaba, [employer] [address] [place] [address] Recurrent urticaria (Primary Dx) Social History Tobacco Use Types Packs/Day Years Used Date Smoking Tobacco: Never Assessed Comments Unknown Sex and Gender Information Value Date Recorded Sex Assigned at Not on file Legal Sex Female 7:39 PM EDT Gender Identity Not on file Sexual Orientation Not on file documented as of this encounter Plan of Treatment Scheduled Referrals Name Type Priority Associated Diagnoses Order Schedule Ambulatory Referral to Pediatric Allergy and Immunology Outpatient Referral Routine Recurrent urticaria Expected: 08/26/2023 (Approximate), Expires: 02/23/2025 documented as of this encounter Visit Diagnoses Diagnosis Recurrent urticaria- Primary documented in this encounter Care Teams Hammer Adjuster Relationship Specialty Start Date End Date Liseth Kaba APRN [address] [facility] [address] [address] PCP - General 09/14/23 documented as of this encounter
--- OUTSIDE RECORDS SUMMARY | 2025-05-07 17:00 | XMS_ITS | Clinical Summary ---
Author Organization [facility] Address [address] [id number] Care Team Providers Care Missing Persons Investigator Name Role Phone Liseth Kaba EGG TESTER Primary Care Provider [phone]- [phone] Allergies Active Allergy Reactions Criticality Noted Date Comments Cephalexin Hives Medium 03/11/2022 Milk (Cow) Other - please docum ent in the comment field Low 04/04/2024 Overproduction of mucus membranes Penicillins Rash Low 03/11/2022 Medications buPROPion XL (Wellbutrin XL) 150 MG 24 hr tablet Take 1 tablet (150 mg) by mouth 1 (one) time each day. 02/15/2024 Active citalopram (CeleXA) 20 MG tablet Take 1 tablet (20 mg) by mouth 1 (one) time each day. 03/10/2024 Active EPINEPHrine (Epipen) 0.3 MG/0.3ML injection syringe Inject 0.3 mL (0.3 mg) as directed if needed for anaphylaxis. 08/23/2023 Active furosemide (Lasix) 40 MG tablet Take 1 tablet (40 mg) by mouth if needed. 01/01/2024 Active metoprolol succinate XL (Toprol-XL) 50 MG 24 hr tablet Take 1 tablet (50 mg) by mouth 1 (one) time each day. 01/24/2024 Active montelukast (Singulair) 10 MG tablet Take 1 tablet (10 mg) by mouth 1 (one) time each day. 03/13/2024 Active spironolactone (Aldactone) 25 MG tablet Take 1 tablet (25 mg) by mouth if needed. 10/14/2023 Active cetirizine (ZyrTEC) 10 MG tablet Take 1 tablet (10 mg) by mouth 1 (one) time each day. Active Active Problems No known active problems Social History Tobacco Use Types Packs/Day Years Used Date Smoking Tobacco: Never Passive Smoke Exposure: Never Smokeless Tobacco: Never Tobacco Cessation:Counseling Given: Not Answered Comments Unknown Sex and Gender Information Value Date Recorded Sex Assigned at Not on file Legal Sex Female 7:39 PM EDT Gender Identity Not on file Sexual Orientation Not on file Last Filed Vital Signs Vital Sign Reading Time Taken Comments Blood Pressure 112/68 04/04/2024 1:11 PM EDT Pulse 67 04/04/2024 1:11 PM EDT Temperature 36.6 C (97.9 F) 04/04/2024 1:11 PM EDT Respiratory Rate 16 04/04/2024 1:11 PM EDT Oxygen Saturation - - Inhaled Oxygen Concentration - - Weight 86.7 kg (191 lb 2.2 oz) 04/04/2024 1:11 P M EDT Height 162.2 cm (5' 3.86 ) 04/04/2024 1:11 PM ED T Body Mass Index 32.95 04/04/2024 1:11 PM EDT Plan of Treatment Health Maintenance Due Date Last Done Comments [facility]-Depression Screening 1968 [facility]-HIV Screening 1968 [facility]-Hepatitis C Screening 1968 [facility]-Infant/Child/Adol SDOH Screenings 1968 [facility]- SDOH Screenings 1986 [facility]-Adult SDOH Screenings 1986 [facility]-Hepatitis B Vaccines (1 of 3 - 19+ 3-dose series) 1987 [facility]-Pap Smear 1989 [facility]-Cervical Cancer Screening 1998 [facility]-HPV/Cotest 1998 CT Colonography 2013 Colonoscopy 2013 FIT-DNA 2013 FIT 2013 FOBT 2013 Sigmoidoscopy 2013 [facility]-Colorectal Cancer Screening 2013 [facility]-Breast Cancer Screening 2018 [facility]-Pneumococcal Vaccine: 50 + Years (1 of 1 - PCV) 2018 [id number] Vaccine ( season) 2024 12/19/2021, 07/12/2021, 06/21/2021 [facility]-Influenza Vaccine (Seaso n Ended) 2025 [facility]-DTaP,Tdap,and Td Vaccine s (2 - Td or Tdap) 03/30/2033 03/30/2023 [facility]-Zoster Vaccines Completed 06/09/2023, 08/17/2022 [facility]-Obesity Intervention Completed 04/04/2024 HPV Vaccines Aged Out No longer eligi ble based on patient's age to complete this topic [facility]-HIB Vaccines Aged Out No longer e ligible based on patient's age to complete this topic [facility]-Hepatitis A Vaccines Aged Out No longer eligible based on patient's age to complete this topic [facility]-IPV Vaccines Aged Out No longer e ligible based on patient's age to complete this topic [facility]-Rotavirus Vaccines Aged Out No lo nger eligible based on patient's age to complete this topic Insurance ANTH Care Teams Missing Persons Investigator Relationship Specialty Start Date End Date Liseth Kaba APRN [address] [facility] [address] [place] [address] PCP - General 09/14/23
--- OUTSIDE RECORDS SUMMARY | 2025-05-07 17:00 | XMS_ITS | Clinical Summary ---
Author Organization [facility] Address [facility] [place] [address] Care Team Providers Care Clinical Informatics Specialist Name Role Phone Unavailable Primary Care Provider Unavailabl e Source Comments This information has been disclosed to you from confidential records protectedfrom disclosure by state law. You shall make no further disclosure of thisinformation without the specific, written, and informed release of theindividual to whom it pertains, or as otherwise permitted by law. A generalauthorization for the release of medical or other information is not sufficientfor the purposes of therelease of HIV test results or diagnoses. [id number] Social History Tobacco Use Types Packs/Day Years Used Date Smoking Tobacco: Never Assessed Comments Unknown Sex and Gender Information Value Date Recorded Sex Assigned at Not on file Legal Sex Female 12:53 PM EST Gender Identity Not on file Sexual Orientation Not on file Plan of Treatment Not on file
--- OUTSIDE RECORDS SUMMARY | 2025-05-07 17:00 | XMS_ITS | Clinical Summary ---
Author Organization [facility] Address [address] [place] [phone] Phone Care Team Providers Care Dray Truck Driver Name Role Phone Unavailable Primary Care Provider Unavailabl e Social History Tobacco Use Types Packs/Day Years Used Date Smoking Tobacco: Never Assessed Comments Unknown Sex and Gender Information Value Date Recorded Sex Assigned at Not on file Legal Sex Female 10:32 AM EDT Gender Identity Not on file Sexual Orientation Not on file Plan of Treatment Upcoming Encounters Date Type Department Care Team (Late st Contact Info) Description 06/27/2025 11:00 AM EDT Office Visit [facility] [address] [address] Brandy Leon MD [address] [place] [id number] Health Maintenance Due Date Last Done Comments Annual Wellness Exam 1971 DTaP/TDaP/Td (1 - Tdap) 1987 Hepatitis B Vaccine (1 of 3 - 19+ 3-dose series) 1987 Cervical Cancer Screening 1989 Pap Smear 1989 HPV/Pap Cotest 1998 Breast Cancer Screening 2008 Cologuard 2013 Colon Cancer Screening 2013 Colonoscopy 2013 FIT 2013 Sigmoidoscopy 2013 Virtual Colonography 2013 Pneumococcal Vaccine 50+ (1 of 1 - PCV) 2018 Zoster (1 of 2) 2018 COVID-19 Vaccine (2023-2 5 season) 2024 Influenza Vaccine (Season Ended) 2025 Meningococcal B Vaccine Aged Out No l onger eligible based on patient's age to complete this topic
--- NOTE | 2025-05-07 17:05 | MM_ITS ---
PROCEDURE INFORMATION: Exam: MG Bilateral Screening 3D Mammography Exam date and time: 05/07/2025 5:09 PM Age: 54 years old Clinical indication: Screening examination TECHNIQUE: Imaging protocol: Bilateral Screening tomosynthesis and 2D mammography including computer-aided detection (CAD) when performed. COMPARISON: 1. MG MM DIG SCREENING MAMM BI W/CAD 11/03/2023 8:07 AM 2. MG MARIN SCRN MAMMO W/CAD BILAT 08/19/2022 8:47 AM FINDINGS: MAMMOGRAPHY: Breast composition: There are scattered areas of fibroglandular density. Mass: None. Architectural distortion: None. Calcifications: No suspicious calcifications. Asymmetric density: None. Skin thickening: None. Axillary adenopathy: None. IMPRESSION: No mammographic evidence of malignancy. Annual screening is recommended unless otherwise clinically indicated. ASSESSMENT: BI-RADS Category 1: Negative.
== END 2025-05-07 23:59 | disposition home or self-care (01) ==
LOC: RAD 16:58
PROVIDERS: PCP Internal Medicine Adolescent Medicine; Referring Provider Obstetrics & Gynecology Gynecology; Visit Provider Obstetrics & Gynecology Gynecology
DX: Z12.31 Encounter for screening mammogram for malignant neoplasm of breast (principal); R92.323 Mammographic fibroglandular density, bilateral breasts
CPT/HCPCS: 77063; 77067

== ENCOUNTER 2025-10-30 11:26 | Outpatient (CLI) | payer BC, SELFPAY ==
--- OUTSIDE RECORDS SUMMARY | 2025-10-30 11:28 | XMS_ITS | Clinical Summary ---
Author Organization [facility] Address [address] [place] [address] Care Team Providers Care Sorter Upholstery Parts Name Role Phone Adams Nichole MD Primary Care Provider + [phone] Allergies Active Allergy Reactions Criticality Noted Date Comments Cephalexin Hives Medium 03/11/2022 Milk (Cow) Other (See Comments) Low 04/04/2024 Overproduction of mucus membranes Penicillins Rash Low 03/11/2022 Social History Tobacco Use Types Packs/Day Years Used Date Smoking Tobacco: Never Assessed Abuse Screen Answer Date Recorded Feels Unsafe at Home or Work/School no 08/10/2024 Feels Threatened by Someone no 07/30 Does Anyone Try to Keep You From Having Contact with Others or Doing Things Outside Your Home? no 08/10/2024 Physical Signs of Abuse Present no 08/10/2024 Housing Stability Answer Date Recorded Current Living Arrangements Not on file 07/2023 Potentially Unsafe Housing Conditions Not on rosalie e 09/06/2023 Family and Community Support Answer Chavo e Recorded Help with Day-to-Day Activities Not on file 09/06/2023 Lonely or Isolated Not on file 09/06/2023 Employment Answer Date Recorded Do you want help finding or keeping work or a anthony b? Not on file 09/06/2023 Disabilities Answer Date Recorded Concentrating, Remembering, or Making Decisions Difficulty Not on file 09/06/2023 Doing Errands Independently Difficulty Not on fi le 09/06/2023 Education Answer Date Recorded Help with school or training? Not on file Preferred Language Not on file 09/06/2023 Comments No Sex and Gender Information Value Date Recorded Sex Assigned at Not on file Legal Sex Female 12:45 PM EDT Gender Identity Not on file Sexual Orientation Not on file Last Filed Vital Signs Vital Sign Reading Time Taken Comments Blood Pressure 134/80 08/11/2024 12:00 AM EDT Pulse 65 08/11/2024 12:45 AM EDT Temperature 36.5 C (97.7 F) 08/10/2024 9:49 PM EDT Respiratory Rate 18 08/11/2024 12:00 AM EDT Oxygen Saturation 95% 08/11/2024 12:45 AM EDT Inhaled Oxygen Concentration - - Weight 83.9 kg (185 lb) 08/10/2024 9:49 PM EDT Height 162.6 cm (5' 4 ) 08/10/2024 9:49 PM EDT Body Mass Index 31.76 08/10/2024 9:49 PM EDT Plan of Treatment Health Maintenance Due Date Last Done Comments Annual Gynecologic Pelvic and Breast Exam 1970 MAMMOGRAM 2008 COLOGUARD 2013 COLON CANCER SCREENING 5 YEA R SIGMOIDOSCOPY 2013 COLONOSCOPY [address] CANCER SCREENING 2013 CT COLONOGRAPHY 2013 FECAL OCCULT BLOOD TEST 2013 FIT Testing (1 year) 2013 ANNUAL PHYSICAL 06/09/2017 HEPATITIS C SCREENING 06/09/2017 Pneumococcal Vaccine 50+ (1 of 1 - PCV) 2018 INFLUENZA VACCINE 06/29/2025 TDAP/TD VACCINES (2 - Td or Tdap) 03/30/2033 023 ZOSTER VACCINE Completed 06/09/2023, 08/17/2022 Insurance Care Teams Sorter Upholstery Parts Relationship Specialty Start Date End Date Adams Nichole MD [address] [place] [address] PCP - General Adolescent Medicine 08/10/24
--- OUTSIDE RECORDS SUMMARY | 2025-10-30 11:28 | XMS_ITS | Clinical Summary ---
Author Organization [facility] Address [address] [id number] Care Team Providers Care Plant Operations Engineer Name Role Phone Liseth Kaba PANTOGRAPH SETTER Primary Care Provider [phone] Allergies Active Allergy Reactions Criticality Noted Date [...] [facility]-HIV Screening 1968 [facility]-Hepatitis C Screening 1968 [facility]-/Child/Adol SDOH Screenings 1968 [facility]- SDOH Screenings 1986 [facility]-Adult SDOH Screenings 1986 [facility]-Hepatitis B Vaccines (1 of 3 - 19+ 3-dose series) 1987 [facility]-Pap Smear 1989 [facility]-Cervical Cancer Screening 1998 [facility]-HPV/Cotest 1998 CT Colonography 2013 Colonoscopy 2013 FIT-DNA 2013 FIT 2013 FOBT 2013 Sigmoidoscopy 2013 [facility]-Colorectal Cancer Screening 2013 [facility]-Breast Cancer Screening 2018 [facility]-Pneumococcal Vaccine: 50 + Years (1 of 1 - PCV) 2018 EVB-WDNIH-09 Vaccine ( season) 2025 12/19/2021, 07/12/2021, 06/21/2021 [facility]-Influenza Vaccine (#1) 2025 [facility]-DTaP,Tdap,and Td Vaccine s (2 - [...] complete this topic Insurance ANTH Care Teams Plant Operations Engineer Relationship Specialty Start Date End Date Liseth Kaba APRN [address] [facility] [address] [place] [address] PCP - General 09/14/23
--- OUTSIDE RECORDS SUMMARY | 2025-10-30 11:28 | XMS_ITS | Clinical Summary ---
Author Organization [facility] Address [facility] [place] [address] Care Team Providers Care Financial Wellness Coach Name Role Phone Unavailable Primary Care Provider [...] therelease of HIV test results or diagnoses. [id number] Social History Tobacco Use Types Packs/Day Years Used Date Smoking Tobacco: Never Assessed Comments Unknown Sex and Gender Information Value Date Recorded Sex Assigned at Not on file Legal Sex Female 12:53 PM EST Gender Identity Not on file Sexual Orientation Not on file Plan of Treatment Not on file
--- OUTSIDE RECORDS SUMMARY | 2025-10-30 11:29 | XMS_ITS | Encounter Summary ---
Author Organization [facility] Address [address] [place] [address] Care Team Providers Care Concrete Pipe Plant Supervisor Name Role Phone Adams Nichole MD Primary Care Provider + [phone] Encounter Details Date Type Department Care Team (Late st Contact Info) Description 12/28/2012 Conversion Encounter [facility] HISTORICAL CONV [address] [place] [address] Interface, See Report Social History Tobacco Use Types Packs/Day Years Used Date Smoking Tobacco: Never Assessed Comments Unknown Sex and Gender Information Value Date Recorded Sex Assigned at Not on file Legal Sex Female 12:45 PM EDT Gender Identity Not on file Sexual Orientation Not on file documented as of this encounter Progress Notes * Interface, See Report - 12/28/2012 12:00 AM EST Patient: EILEEN CONN MR #: : [id number] Date of Visit: 12/30/2011 Attending Physician: Azul Mejia Dictated By: NI SLAUGHTER Referring Physician: Diagnosis: PROLAPSE; SETH MATERNAL OV CA AGE 38; MATERNAL COLON CA MATERNAL ESOPH CANCER Allergies: PCN Chief complaint: POSTOP, NO COMPLAINTS History of present illness: [facility] 12-08-2012, BENIGN PATH Past medical history: Medical: SEE SCANNED H&P Surgical: SEE SCANNED H&P Health maintenance: Mammogram: Colonoscopy: Pap smear: Tumor Marker: CT Scan: BMD: Review of systems: Constitutional: No change in weight, no excessive fatigue Psychiatric: No history of anxiety, depression, bipolar disorder, or insomnia Respiratory: No shortness of breath, cough, asthma, wheezing Cardiovascular: No angina, orthopnea, edema, hypertension, murmur, hyperlipidemia Gastrointestinal: No constipation or diarrhea, no reflux, nausea, or vomiting Genitourinary: No dysuria, hematuria, urgency, or frequency Neurologic: No numbness, weakness, syncope, seizures, or headaches Gynecologic: No abnormal bleeding, vaginal d ischarge, pelvic pain, of h/o abnml pap smears LMP: G: P: Vag Deliveries: C-sec: Additional notes: ALLERGIES Medications: See documented medication list. Physical exam: Constitutional: Weight 164 Height BP 118/78 Pulse Temp Neurological/Psychiatric: HEENT: Neck: Respiratory: Cardiovascular: Breasts: Gastrointestinal: Lymphatic: Extremities: Gynecologic: External Genitalia: Vagina: Cervix: ; cuff healing well Uterus: Ovaries: Parametria: Smooth. Rectovaginal: Hemoccult: Procedure note: Assessment: Satifactory post op risk reducing lavhbso Plan: APPT [place] 6MO KEGEL'S Approved by: Godfrey Arboleda 12/30/2012, 10:02 AM cc: documented in this encounter Plan of Treatment Not on file documented as of this encounter Visit Diagnoses Not on filedocumented in this encounter Care Teams Concrete Pipe Plant Supervisor Relationship Specialty Start Date End Date Adams Nichole MD [address] [place] [id number] PCP - General Adolescent Medicine 08/10/24 documented as of this encounter
--- OUTSIDE RECORDS SUMMARY | 2025-10-30 11:29 | XMS_ITS | Encounter Summary ---
Author Organization [facility] [place] [address] Care Team Providers Care Financial Planning Consultant Name Role Phone Adams Nichole MD Primary Care Provider + [phone] Reason for Visit * Reason Onset Date Comments Pre-op Call 10/29/2025 Encounter Details Date Type Department Care Team (Late st Contact Info) Description 10/29/2025 Telephone [facility]ne[facility] [address] [address] Bianca Singh LPN Pre-op Call Social History Tobacco Use Types Packs/Day Years Used Date Smoking Tobacco: Never Smokeless Tobacco: Never Alcohol Use Standard Drinks/Week Comments Not Currently 0 (1 standard drink = 0.6 oz pur e alcohol) Sexually Active Control Partners Comments Yes Surgical Comments No Sex and Gender Information Value Date Recorded Sex Assigned at Not on file Legal Sex Female 10:32 AM EDT Gender Identity Not on file Sexual Orientation Not on file documented as of this encounter Miscellaneous Notes * Telephone Encounter - Bianca Singh LPN - 10/29/2025 11:19 AM ESTSummary: Pre-OP Call Urogyn Pre-op Phone Call 1. Kristy Jones, 1970 2. Procedure:Interstim Removal with Fluoroscopy , Surgery Date/Time: 11/01/25 @ 1445 3. H&P by PCP: Patient is NOT cleared for surgery due to has not seen PCP yet, advised if she does not get this done, surgery will be canceled-forms faxed to Dr. Nichole at [phone], H&P completed date: by Lab Results: Imaging Results: Any past issues with anesthesia including malignant hyperthermia or latex allergy? NO Pre-op Call: 1. NPO by midnight before surgery 2. No blood thinners x1 week, STOP ASA until after surgery 3. Arrive 2 hours prior to surgery 4. Please read the provided surgical folder with all the pre-op and post-op instructions. Bianca Singh LPN documented in this encounter Plan of Treatment Upcoming Encounters Date Type Department Care Team (Latest Contact Info) Description 11/01/2025 2:45 PM EST Hospital Encounter [facility] [address] [place] [address] Brandy Leon MD [address] [place] [address] 11/01/2025 2:45 PM EST Anesthesia Event [facility] [address] [place] [address] Ap Randhawa, UNIT AIDE [address] [place] [address] 11/01/2025 2:45 PM EST - 11/01/2025 3:45 PM EST Surgery [facility] [address] [place] [address] Brandy Leon MD [address] [place] [address] SACRAL NEUROMODULATION EXPLANT / REMOVAL 11/28/2025 9:00 AM EST Office Visit [facility]ne[facility] [address] [phone] Ana Cardoso PA-C [address] [place] [address] Scheduled Procedures Name Priority Associated Diagnoses Date/Ti me SACRAL NEUROMODULATION EXPLANT / REMOVAL Incontinence of feces, unspecified fecal incontinence type OAB (overactive bladder) Mixed stress and urge urinary incontinence 11/01/2025 2:45 PM EST documented as of this encounter Goals Goal Patient Goal Type Associated Problems Recent Progress Patient-Stated? Author Autogenera carmela Goal Care Plan Autogenerated Problem No Annie Torres, Clerical Staff documented as of this encounter Visit Diagnoses Not on filedocumented in this encounter Additional Health Concerns Active Problems Noted Date Diagnosed Date Autogenerated Problem 10/11/2025 documented as of this encounter Care Teams Financial Planning Consultant Relationship Specialty Start Date End Date Adams Nichole MD [address] [place] [address] PCP - General Internal Medicine-Adolescent Medicine 10/29/25 documented as of this encounter
--- OUTSIDE RECORDS SUMMARY | 2025-10-30 11:29 | XMS_ITS | Encounter Summary ---
Author Organization [facility] Address [address] [place] [address] Care Team Providers Care Producer Arborist Manager Name Role Phone Adams Nichole MD Primary Care Provider + [phone] Encounter Details Date Type Department Care Team (Late st Contact Info) Description 07/26/2013 Conversion Encounter [facility] HISTORICAL CONV [address] [place] [address] Interface, See Report Social History Tobacco Use Types Packs/Day Years Used Date Smoking Tobacco: Never Assessed Comments Unknown Sex and Gender Information Value Date Recorded Sex Assigned at Not on file Legal Sex Female 12:45 PM EDT Gender Identity Not on file Sexual Orientation Not on file documented as of this encounter Progress Notes * Interface, See Report - 07/26/2013 12:00 AM EDT [facility]ER SUPER[facility]OR[facility] [address] [place], [place] [id number] Patient: EILEEN CONN. MR #: : 1970 Date of Visit: 07/26/2013 Attending Physician: Rafael Coello Dictated By: JOSEFINA MEJIA Referring Physician: RAFAEL COELLO Diagnosis: HIGH RISK Allergies: PCN History of present illness: HIGH RISK . [facility] 38 [facility] female here for high risk visit due to family history of colon and ovarian cancer. Her mother was BRCA 2+, and the patientunderwent testing that was negative for BRCA mutation. Her mother's personal and family history wasalso suspicious for Abbott and she underwent testing that favored benign findings, although a gene variant was determined that has not been r e-classified as mutation. She therefore did not meet clinical or diagnostic criteria for Abbott. Ms. Conn is having no problems today. She underwent LAVH/BSO in 12/11 for risk reduction (due to family h/o ov cancer) and c/p prolapse and is feeling well. Hermammogram was done within the last year, and she just underwent EGD/Colonoscopy with Dr. Kennedy in 07/11. She has no breast or GI complaints today. She completes occassional self breast exams. Past family and/or social history: Family history: Mother - Ovarian CA/Colon CA/Esophageal CA/BRCA2+. Maternal Grandmother - Colon CA/Lung CA. Maternal Uncle - Colon CA. Maternal Grandfather - Skin CA/Leukemia. Brother(s) x2 - Colon Polyps. Social history: Tobacco: Y N PPD: ETOH: Y N # Drinks : Marital Status: Occupation: N/A Past medical history: Medical: DEPRESSION; ALLERGIES Surgical: LAVH/BSO Risk assessment: Rosalina: Jose F: Charlette: Genetic Testing: Health maintenance: Mamm: 2013 Breast MRI: Breast Exam: 11-09 Ov Screen: Tumor Marker: Pap smear: Colonoscopy: Upper Endoscopy: Neuro: Derm: UA: Abd US: Eye: Review of systems: Constitutional: No change in weight, no excessive fatigue Psychiatric: +DEPRESSION. No history of anxiety, bipolar disorder, or insomnia Eyes: Vision unchanged Ears, Nose, Mouth, Throat: +ALLERGIES. Hearing normal, no swallowing difficulties, no sore throat Endocrine: No history of diabetes, thyroid disease, heat/cold intolerance Lymphatic: No enlarged lymph nodes Breast: No masses, skin changes, nipple d/c, or pain Respiratory: No shortness of breath, cough, asthma, wheezing Cardiovascular: No angina, orthopnea, edema, hypertension, murmur, hyperlipidemia Gastrointestinal: No constipation or diarrhea, no reflux, nausea, or vomiting Genitourinary: No dysuria, hematuria, urgency, or frequency Neurologic: No numbness, weakness, syncope, seizures, or headaches Musculoskeletal: No muscle weakness, or joint pain Integumentary: No new skin lesions Gynecologic: + H/O LAVH BSO . No abnormal bleeding, vaginal discharge, pelvic pain, of h/o abnml pap smears LMP: P: 2 Vag Deliveries: 2 C-sec: 0 Misc: 1 Hematologic: No history of anemia, easy bruising, or blood clots Medications: Medication Reconciliation for the patient has been reviewed in the EMR. Physical Exam: Constitutional: Weight 165 Height BP 96/70 Pulse Temp Neurological/Psychiatric: HEENT: Neck: Respiratory: Cardiovascular: Breasts: Breast are symmetric, moderate size. There are no skin changes or lesions noted. The nipples are everted bilaterally and without discharge. There are no dominant masses, nodules or lesions palpable. Lymphatic: No cervical, infra/supraclavicular, axillary, or epitrochlearn adenopathy noted Gastrointestinal: Extremities: Skin: Assessment: Family history of Ov Cancer Family history of Colon cancer Plan: Continue yearly mammograms, Qmonthly self breast exams, and annual clinical breast exams. We discussed vivelle use and increase risk for breast cancer and the need to continue routine breast screening Q3-5 year colonoscopy/EGD due to family history of colon/esophageal cancer Call to report any breast changes or changes in bowel function Pt will be due for FIXER SUPERVISOR annual exam in 11/10 Will requests records from [facility] regarding Mamm, colonoscopy/EGD. RTC Patient Education: Discussed risk based on family history and clinical implications of negative BRCA/Abbott testing. Reviewed screening schedule for pt to including annual mamm, annual FIXER SUPERVISOR exam, annual clinical breast exams, monthly self breast exams, and Q3-5 year GI screening. Total Time Spent: 15 min. Approved by: Josefina Mejia 07/26/2013, 9:52 AM cc: documented in this encounter Plan of Treatment Not on file documented as of this encounter Visit Diagnoses Not on filedocumented in this encounter Care Teams Producer Arborist Manager Relationship Specialty Start Date End Date Adams Nichole MD [address] [facility] [address] [place] [address] PCP - General Adolescent Medicine 08/10/24 documented as of this encounter
--- OUTSIDE RECORDS SUMMARY | 2025-10-30 11:29 | XMS_ITS | Encounter Summary ---
Author Organization [place] [address] Care Team Providers Care Press Breaker Name Role Phone Unavailable Primary Care Provider Unavailabl e Reason for Visit * Reason Onset Date Comments Surgery Scheduling 08/17/2025 Encounter Details Date Type Department Care Team (Late st Contact Info) Description 08/17/2025 Telephone [facility] U[facility]ne[facility] [address] [phone] Bianca Villafuerte LPN Surgery Scheduling Social History Tobacco Use Types Packs/Day Years Used Date Smoking Tobacco: Never Smokeless Tobacco: Never Alcohol Use Standard Drinks/Week Comments Not Currently 0 (1 standard drink = 0.6 oz pur e alcohol) Sexually Active Control Partners Comments Yes Surgical Comments Unknown Sex and Gender Information Value Date Recorded Sex Assigned at Not on file Legal Sex Female 10:32 AM EDT Gender Identity Not on file Sexual Orientation Not on file documented as of this encounter Miscellaneous Notes * Addendum Note - Bianca Villafuerte LPN - 10/11/2025 2:40 PM ESTAddended by: BIANCA VILLAFUERTE on: 10/11/2025 02:40 PM Modules accepted: Orders * Telephone Encounter - Bianca Villafuerte LPN - 10/11/2025 2:27 PM ESTSummary: Surgery Scheduled Incoming call from Patient. She just wants the Interstim removed, no new one. She has to have a brain MRI. I did tell her that the one ones are MRI compatible. She said she still does not want a new one. Discussed surgery date(s)/time(s) w/ Dr. Lambert. Date: 11/01/25 Time: 1445 To be Scheduled: Interstim Removal with Fluoroscopy *Advised need Pre-Op H/P JEROME *Expect a call from PAT *STOP ASA 1 week Pre-Op *MyChart message sent * Telephone Encounter - Bianca Villafuerte LPN - 08/28/2025 12:47 PM EDT Lmtcb to discuss surgery date(s)/time(s) w/ Dr. Lambert. To be Scheduled: Interstim Removal w/ Stage 1 then 1-2 weeks later we will do Stage 2. * Telephone Encounter - Brandy Leon MD - 08/17/2025 10:57 PM EDT Yes, it was kind of an odd situation where she is not sure if she ever had relief even during her trial 10+ years ago. She wants the old one out but I think she needs a repeat trial before putting inthe permanent battery. So I will do the removal and stage 1 at the same time, then stage 2 one to two weeks later. Thanks! Vivian * Telephone Encounter - Bianca Villafuerte LPN - 08/17/2025 11:[address] Lambert, Just so I know I'm scheduling this correctly, she is having an Interstim Removal along with Staged Interstim after a 1-2 week trial? Thank you, Alexandra documented in this encounter Plan of Treatment Upcoming Encounters Date Type Department Care Team (Latest Contact Info) Description 11/01/2025 2:45 PM EST Hospital Encounter [facility] [address] [place] [address] Brandy Leon MD [address] [place] [address] 11/01/2025 2:45 PM EST Anesthesia Event [facility] [address] [place] [address] Ap Randhawa, PRECISION PRINTING WORKER [address] [place], [place] [id number] 11/01/2025 2:45 PM EST - 11/01/2025 3:45 PM EST Surgery [facility] [address] [place] [address] Brandy Leon MD [address] [place] [address] SACRAL NEUROMODULATION EXPLANT / REMOVAL 11/28/2025 9:00 AM EST Office Visit [facility] Uro[facility]ne[facility] [address] [phone] Ana Cardoso PA-C [address] [place] [address] Scheduled Orders Name Type Priority Associated Diagnoses Orde r Schedule SURGICAL/PROCEDURE CASE REQUEST - ERAS Procedures Routine Incontinence of feces, unspecified fecal incontinence type OAB (overactive bladder) Mixed stress and urge urinary incontinence Ordered: 10/11/2025 Scheduled Procedures Name Priority Associated Diagnoses Date/Ti ky SACRAL NEUROMODULATION EXPLANT / REMOVAL Incontinence of feces, unspecified fecal incontinence type OAB (overactive bladder) Mixed stress and urge urinary incontinence 11/01/2025 2:45 PM EST documented as of this encounter Goals Goal Patient Goal Type Associated Problems Recent Progress Patient-Stated? Author Autogenera carmela Goal Care Plan Autogenerated Problem No Annie Torres, Clerical Staff documented as of this encounter Visit Diagnoses Diagnosis Incontinence of feces, unspecified fecal incontinence type- Primary OAB (overactive bladder) Hypertonicity of bladder Mixed stress and urge urinary incontinence Mixed incontinence urge and stress (male)(female) Incontinence of feces Full incontinence of feces OAB (overactive bladder) Hypertonicity of bladder Mixed stress and urge urinary incontinence Mixed incontinence urge and stress (male)(female) Incontinence of feces, unspecified fecal incontinence type OAB (overactive bladder) Hypertonicity of bladder Mixed stress and urge urinary incontinence Mixed incontinence urge and stress (male)(female) documented in this encounter Additional Health Concerns Active Problems Noted Date Diagnosed Date Autogenerated Problem 10/11/2025 documented as of this encounter
--- OUTSIDE RECORDS SUMMARY | 2025-10-30 11:29 | XMS_ITS | Encounter Summary ---
Author Organization [facility] Address [address] [place] [address] Care Team Providers Care Electrician Locomotive Name Role Phone Adams Nichole MD Primary Care Provider + [phone] Encounter Details Date Type Department Care Team (Late st Contact Info) Description 11/14/2012 Conversion Encounter [facility] HISTORICAL CONV [address] [place] [address] Interface, See Report Social History Tobacco Use Types Packs/Day Years Used Date Smoking Tobacco: Never Assessed Comments Unknown Sex and Gender Information Value Date Recorded Sex Assigned at Not on file Legal Sex Female 12:45 PM EDT Gender Identity Not on file Sexual Orientation Not on file documented as of this encounter Progress Notes * Interface, See Report - 11/14/2012 12:00 AM EST Patient: EILEEN CONN MR #: : [id number] Date of Visit: 11/14/2012 Attending Physician: Azul Mejia Dictated By: NI SLAUGHTER Referring Physician: Diagnosis: PROLAPSE; SETH MATERNAL OV CA AGE 38; MATERNAL COLON CA MATERNAL ESOPH CANCER Allergies: PCN Chief complaint: NOCTURIA, PRESSURE, SETH, UI History of present illness: Past medical history: Medical: SEE SCANNED H&P [...] documented medication list. Physical exam: Constitutional: Weight 163 Height BP 104/78 Pulse Temp Neurological/Psychiatric: HEENT: Neck: Respiratory: Cardiovascular: Breasts: Gastrointestinal: Lymphatic: Extremities: Gynecologic: External Genitalia: Vagina: Cervix: Uterus: Ovaries: Parametria: Smooth. Rectovaginal: Hemoccult: Procedure note: Assessment: ELEVATED CANCER RISK D/T MATERNAL H/O MULTIPLE MALIGNANCIES SETH; OCC URGENCY Plan: SCHEDULE CYSTOMETRICS [facility] FOR SCREENING ETC. Approved by: , cc: * Interface, See Report - 11/03/2012 12:00 AM EST Patient: EILEEN CONN MR #: : [id number] Date of Visit: 11/03/2012 A ttending Physician: Azul Mejia Dictated By: LEYLA GAITAN Referring Physician: Diagnosis: ANNUAL WWE Allergies: PCN Chief complaint: PELVIC PRESSURE, NOCTURIA, URGENCY, SETH, UI History of present illness: Here for annual exam. Has many questions regarding cancer screening andrisk. Was evaluated by genetics, BRCA2 -, but there was some concern for clinical diagnosis of arellano syndrome based on her strong family history of colon cancer. She also has some com plaints of SETH,pelvic pressure, and urinary urgency. She denies dysuria, fever, chills, or heamturia. She is interested in prophylactic hyst/BSO as mother was diagnosed with ov cancer at age 40. Present family and/or social history: Family history: No change in family history from prior visit. Social history: Tobacco Y N PPD ETOH Y N # Drinks 1 Marital Status Occupation Past medical history: Medical: No changes in medical history from prior visit. Surgical: No new surgical procedures from prior visit. Health maintenance: Mammogram: Colonoscopy: Pap smear: 10/29/11 Tumor Marker: CT Scan: BMD: Review of systems: Constitutional: No change in weight, no excessive fatigue Psychiatric: +DEPRESSION Eyes: Vision unchanged Ears, Nose, Mouth, Throat: +ALLERGIES, Hearing normal, no swallowing difficulties, no sore throat Endocrine: No history of diabetes, thyroid disease, heat/cold intolerance Lymphatic: No enlarged lymph nodes Respiratory: No shortness of breath, cough, asthma, wheezing Cardiovascular: No angina, orthopnea, edema, hypertension, murmur, hyperlipidemia Gastrointestinal: No constipation or diarrhea, no reflux, nausea, or vomiting Genitourinary: No dysuria, hematuria, urgency, or frequency Neurologic: No numbness, weakness, syncope, seizures, or headaches Musculoskeletal: No muscle weakness, or joint pain Integumentary: No new skin lesions Gynecologic: No abnormal bleeding, vaginal discharge, pelvic pain, of h/o abnml pap smears LMP: P: 2 Vag Deliveries: 21 C-sec: Hematologic: No history of anemia, easy bruising, or blood clots Medications: See documented medication list. Physical exam: Constitutional: Weight 164 [place] 64 [place] [address] Pulse Temp Neurological/Psychiatric: HEENT: Neck: Respiratory: Cardiovascular: Breasts: Gastrointestinal: Lymphatic: Extremities: Skin: Gynecologic: External Genitalia: Vagina: Cervix: , mild descensus of uterus with valsalva Uterus: Ovaries: Parametria: Smooth. Rectovaginal: Hemoccult: Procedure note: Assessment: Annual Well Woman Exam Family history of ovarian and colon cancer Plan: Plan to return for evaluation with Dr. Arboleda for pre-op exam and surgery scheduling (likely [facility]) RTC Approved by: Azul Mejia 4:14 PM , 11/03/2012 cc: documented in this encounter Plan of Treatment Not on file documented as of this encounter Visit Diagnoses Not on filedocumented in this encounter Care Teams Electrician Locomotive Relationship Specialty Start Date End Date Adams Nichole MD [address] [facility] [address] [place] [address] PCP - General Adolescent Medicine 08/10/24 documented as of this encounter
--- OUTSIDE RECORDS SUMMARY | 2025-10-30 11:29 | XMS_ITS | Clinical Summary ---
Author Organization [facility] Address [address] [place] [phone] Phone Care Team Providers Care Field Service Supervisor Name Role Phone Adams Nichole MD Primary Care Provider + [phone] Allergies Active Allergy Reactions Criticality Noted Date Comments Cephalexin Hives Medium 03/11/2022 Milk Other (See Comments) Low 04/04/2024 Overproduction of mucus membranes Penicillins Rash Low 03/11/2022 Medications aspirin 81 mg Oral Tablet, Delayed Release (E.C.) Take 81 mg by mouth every morning. 06/08/20 18 Active buPROPion (WELLBUTRIN XL) 150 mg Oral Tablet Sustained Release 24 hr Take 150 mg by mouth daily. 02/15/20 24 Active cetirizine (ZYRTEC) 10 mg Oral Tablet Take 10 mg by mouth daily. Active citalopram (CELEXA) 20 mg Oral Tablet Take 20 mg by mouth every morning. Active EPINEPHrine (EPIPEN) 0.3 mg/0.3 mL Inj Auto-Injector Inject 0.3 mg as directed. 08/23/20 23 Active estradioL (VIVELLE) 0.05 mg/24 hr TD Patch Semiweekly Place 1 Patch onto the skin two times a week. 05/03/20 25 Active hyoscyamine (LEVSIN/SL) 0.125 mg SL Tablet, Sublingual Take 0.125 mg by mouth every 6 hours as needed for Diarrhea. 05/22/20 25 Active metoprolol succinate (TOPROL-XL) 50 mg Oral Tablet Sustained Release 24 hr Take 50 mg by mouth every morning. 06/08/20 Active montelukast (SINGULAIR) 10 mg Oral Tablet Take 10 mg by mouth every morning. 06/08/20 Active folic acid (FOLVITE) 800 mcg Oral Tablet Take 800 mcg by mouth daily. Active loperamide (IMODIUM) 2 mg Oral CapsuleIndicatio ns:Incontinence of feces, unspecified fecal incontinence type Take 1-2 Capsules by mouth 4 times daily as needed for Diarrhea. 120 Capsule 3 08/14/20 Active cyanocobalamin 1,000 mcg/mL Inj Solution Inject into the muscle once a week. 09/07/20 Active HYDROcodone-acet aminophen (NORCO) 10-325 mg Oral Tablet Take by mouth every 6 hours as needed. 09/06/20 Active Benzoyl Peroxide (BENZAC AC) 10 % Top Cleanser Apply topically nightly. 05/29/20 025 Discontinued( Removed During Admission Medication Review) clindamycin (CLEOCIN T) 1 % Top Gel Apply topically. 05/29/20 025 Discontinued( Removed During Admission Medication Review) mupirocin (BACTROBAN) 2 % Top Ointment Apply topically. 05/29/20 025 Discontinued( Removed During Admission Medication Review) Active Problems Problem Noted Date Diagnosed Date Incontinence of feces 08/14/2025 OAB (overactive bladder) 08/14/2025 Mixed stress and urge urinary incontinence 08/14 Encounters Date Type Department Care Team Description 10/29/2025 Travel 10/29/2025 Orders Only [facility] [address] [address] Bianca Singh LPN Incontinence of feces, unspecified fecal incontinence type (Primary Dx); OAB (overactive bladder) 10/29/2025 Telephone [facility] [address] [address] Bianca Singh LPN Pre-op Call 08/17/2025 Telephone [facility] [address] [address] Bianca Singh LPN Surgery Scheduling 08/14/2025 10:00 AM EDT Office Visit [facility] [address] [phone] Brandy Leon MD Incontinence of feces, unspecified fecal incontinence type (Primary Dx); OAB (overactive bladder); Mixed stress and urge urinary incontinence from Last 3 Months Surgical History Surgery Date Site/Laterality Comments OTHER SURGICAL HISTORY 11/29/2012 - 11/28/2013 bowel interstem HYSTERECTOMY NASAL SEPTUM SURGERY COLONOSCOPY UPPER GASTROINTESTINAL ENDOSCOPY CARDIAC CATHETERIZATION Medical History Medical History Date Comments Incontinence of feces 07/2025 has had a bowel interstem since 2012-there isn't a battery in it-nonworkin OAB (overactive bladder) Mixed stress and urge urinary incontinence JOHNSON (dyspnea on exertion) A-fib (HCC) taking metoprolo l Supraventricular tachycardia roman ing metoprolol Borderline hyperlipidemia Heartburn Irritable bowel syndrome Arthritis Anxiety and depression Eczema 10/29/2025 no dian hes Family History Medical History Relation Name Comments COPD Father Kidney Disease Father Cancer Mother Anesth Problems Neg Hx Relation Name Status Comments Father Alive Mother Social History Tobacco Use Types Packs/Day Years Used Date Smoking Tobacco: Never Smokeless Tobacco: Never Tobacco Cessation:Counseling Given: Not Answered Alcohol Use Standard Drinks/Week Comments Not Currently 0 (1 standard drink = 0.6 oz pur e alcohol) Sexually Active Control Partners Comments Yes Surgical Comments No Sex and Gender Information Value Date Recorded Sex Assigned at Not on file Legal Sex Female 10:32 AM EDT Gender Identity Not on file Sexual Orientation Not on file Obstetrics History Para Term AB IAB SAB Ectopic Multiple Livin g Live Births 3 2 0 0 0 0 0 0 0 0 0 Date Outcome GA Total Labor Labor/2nd/3rd Weight Sex Type Anes PTL Gianna A1 A5 Name Clin Para Para Last Filed Vital Signs Vital Sign Reading Time Taken Comments Blood Pressure 106/68 08/14/2025 10:24 AM EDT Pulse 71 08/14/2025 10:24 AM EDT Temperature - - Respiratory Rate - - Oxygen Saturation 98% 08/14/2025 10:24 AM EDT Inhaled Oxygen Concentration - - Weight 86.2 kg (190 lb) 10/29/2025 5:40 PM EST Height 162.6 cm (5' 4 ) 10/29/2025 5:40 PM EST Body Mass Index 32.61 10/29/2025 5:40 PM EST Plan of Treatment Upcoming Encounters Date Type Department Care Team (Latest Contact Info) Description 11/01/2025 2:45 PM EST Hospital Encounter [facility] [address] [place] [address] Brandy Leon MD [address] [place] [phone] 11/01/2025 2:45 PM EST Anesthesia Event [facility] [address] [place] [address] Ap Randhawa, SNOW REMOVER [address] [place], [place] [phone] 11/01/2025 2:45 PM EST - 11/01/2025 3:45 PM EST Surgery [facility] [address] [place] [address] Brandy Leon MD [address] [place] [address] SACRAL NEUROMODULATION EXPLANT / REMOVAL 11/28/2025 9:00 AM EST Office Visit [facility] [address] [phone] Ana Cardoso PA-C [address] [place] [address] Scheduled Procedures Name Priority Associated Diagnoses Date/Ti me SACRAL NEUROMODULATION EXPLANT / REMOVAL Incontinence of feces, unspecified fecal incontinence type OAB (overactive bladder) Mixed stress and urge urinary incontinence 11/01/2025 2:45 PM EST Health Maintenance Due Date Last Done Comments Annual Wellness Exam 1971 Hepatitis B Vaccine (1 of 3 - 19+ 3-dose series) 1987 Cervical Cancer Screening 1989 Pap Smear 1989 HPV/Pap Cotest 1998 Breast Cancer Screening 2008 Cologuard 2013 Colon Cancer Screening 2013 Colonoscopy 2013 FIT 2013 Sigmoidoscopy 2013 Virtual Colonography 2013 Pneumococcal Vaccine 50+ (1 of 1 - PCV) 2018 COVID-19 Vaccine (4 - 2024-2 6 season) 2025 12/19/2021, 07/12/2021, 06/21/2021 Influenza Vaccine (#1) 2025 DTaP/TDaP/Td (2 - Td or Tdap) 03/30/2033 03/30/2023 Zoster Completed 06/09/2023, 08/17/2022 Meningococcal B Vaccine Aged Out No l onger eligible based on patient's age to complete this topic Goals Goal Patient Goal Type Associated Problems Recent Progress Patient-Stated? Author Autogenera carmela Goal Care Plan Autogenerated Problem No Annie Torres, Clerical Staff Medical Devices Implanted Type Area Quality Systems Engineer Device Identifier Shelf Expiration Date Model / Serial / Lot Bowel Interstem Procedures Procedure Name Priority Date/Time Associated Diagnosis Comments [facility] URINALYSIS POC Routine 08/14/2025 10 :43 AM EDT Incontinence of feces, unspecified fecal incontinence type from Last 3 Months Results * SEP URINALYSIS POC (08/14/2025 10:43 AM EDT) UA Color POC Yellow Color 08/14/2025 10:45 AM EDT [facility]A Appear POC Clear Clear 08/14/2025 10:45 AM EDT [facility] UA Gluc POC Negative Negative mg/dL 08/14/2025 10:45 AM EDT [facility] UA Bili POC Negative Negative 08/14/2025 10:45 AM EDT [facility] UA Ketones POC Negative Negative mg/dL 08/14/2025 10:45 AM EDT [facility] UA SG POC <=1.005 1.001 - 1.035 no units 08/14/2025 10:45 AM EDT [facility] Blood POC Negative Negative 08/14/2025 10:45 AM EDT [facility] UA pH POC 6.5 5.0 - 8.0 pH 08/14/2025 10:[address] [facility]A Protein POC Negative Negative mg/dL 08/14/2025 10:[address] [facility] UA Urobilinogen POC 0.2 0.2, 1.0 08/14/2025 10:[address] [facility] Nitrite POC Negative Negative 08/14/2025 10:[address] [facility]A Leuk Est POC Negative Negative 10:[address] [facility] Urine STRUCTURE OF URINARY TRACT PROPER / Unknown 08/14/2025 10:43 AM EDT 08/14/2025 10:45 AM EDT Brandy Leon MD POINT OF CARE TEST EDEL JORDAN Final Result Performing Organization Address City/State/[facility] Co de Phone Number [facility] [address] [place] [address] from Last 3 Months Additional Health Concerns Active Problems Noted Date Diagnosed Date Autogenerated Problem 10/11/2025 [facility] Care Teams Field Service Supervisor Relationship Specialty Start Date End Date Adams Nichole MD [address] [place] [address] [place] [address] PCP - General Internal Medicine-Adolescent Medicine 10/29/25
--- OUTSIDE RECORDS SUMMARY | 2025-10-30 11:29 | XMS_ITS | Encounter Summary ---
Author Organization [place] [address] Care Team Providers Care Ceramic Saw Tender Name Role Phone Adams Nichole MD Primary Care Provider + [phone] Encounter Details Date Type Department Care Team (Late st Contact Info) Description 10/29/2025 Orders Only [facility] [address] [address] Bianca Singh LPN Incontinence of feces, unspecified fecal incontinence type (Primary Dx); OAB (overactive bladder) Social History Tobacco Use Types Packs/Day Years [...] as of this encounter Progress Notes * Bianca Singh LPN - 10/29/2025 11:52 AM EST Images from the original note were not included. documented in this encounter Plan of Treatment Upcoming Encounters Date Type Department Care Team (Latest Contact Info) Description 11/01/2025 2:45 PM EST Hospital Encounter [facility] [address] [place] [place] [address] Brandy Leon MD [address] [place] [phone] 11/01/2025 2:45 PM EST Anesthesia Event [facility] [address] [place] [address] Ap Randhawa, INTENSIVE CARE ANAESTHETIST [address] [place], [place] [phone] 11/01/2025 2:45 PM EST - 11/01/2025 3:45 PM EST Surgery [facility] [address] [place] [address] Brandy Leon MD [address] [place], [place] [phone] SACRAL NEUROMODULATION EXPLANT / REMOVAL 11/28/2025 9:00 AM EST Office Visit [facility] [address] [address] Ana Cardoso PA-C [address] [place] [address] Scheduled Procedures Name Priority Associated [...] this encounter Visit Diagnoses Diagnosis Incontinence of feces Full incontinence of feces OAB (overactive bladder) Hypertonicity of bladder Mixed stress and urge urinary incontinence Mixed incontinence urge and stress (male)(female) Incontinence of feces, unspecified fecal incontinence type- Primary OAB (overactive bladder) Hypertonicity of bladder Incontinence of feces, unspecified fecal incontinence type OAB (overactive bladder) Hypertonicity of bladder Mixed stress and urge urinary incontinence Mixed incontinence urge and stress (male)(female) documented in this encounter Additional Health Concerns Active Problems Noted Date Diagnosed Date Autogenerated Problem 10/11/2025 documented as of this encounter Care Teams Ceramic Saw Tender Relationship Specialty Start Date End Date Adams Nichole MD [address] [place] [address] [place] [address] PCP - General Internal Medicine-Adolescent Medicine 10/29/25 documented as of this encounter
--- OUTSIDE RECORDS SUMMARY | 2025-10-30 11:29 | XMS_ITS | Encounter Summary ---
Author Organization [facility] Address [address] [place] [address] Care Team Providers Care Forensic Psychiatrist Name Role Phone Liseth Kaba BRICK PAVING CHECKER Primary Care Provider [phone] Reason for Referral * Consultation (Routine) - Closed Specialty Diagnoses / Procedures Referred By Misty edward Referred To Contact Pediatric Allergy Diagnoses Recurrent urticaria Liseth Kaba, BRICK PAVING CHECKER [address] [address] Phone: tel: fax: [facility] [address] [place] [address] Phone: tel: fax: Referral ID Status Reason Start Date Expiration Date V isits Requested Visits Authorized [id number] Closed Specialty Services Required 08/26/2023 02/24/2025 1 1 Encounter Details Date Type Department Care Team (Late st Contact Info) Description 08/26/2023 Community Orders Community Practice [address] [place] [address] Liseth Kaba, BRICK PAVING CHECKER [address] [place] [address] Recurrent urticaria (Primary Dx) Social History Tobacco [...] Primary documented in this encounter Care Teams Forensic Psychiatrist Relationship Specialty Start Date End Date Liseth Kaba APRN 1210 [facility] [address] [address] PCP - General 09/14/23 documented as of this encounter
--- OUTSIDE RECORDS SUMMARY | 2025-10-30 11:29 | XMS_ITS | Encounter Summary ---
Author Organization [facility] [place] [address] Care Team Providers Care Lead Caster Helper Name Role Phone Adams Nichole MD Primary Care Provider + [phone] Encounter Details Date Type Department Care Team (Latest Contact Info) Description 10/29/2025 Travel Social History Tobacco Use Types Packs/Day Years [...] as of this encounter Plan of Treatment Upcoming Encounters Date Type Department Care Team (Latest Contact Info) Description 11/01/2025 2:45 PM EST Hospital Encounter [facility] [address] [place] [address] Brandy Leon MD [address] [place], [place] [phone] 11/01/2025 2:45 PM EST Anesthesia Event [facility] [address] [place] [address] Ap Randhawa, KARIS [address] [place] [address] 11/01/2025 2:45 PM EST - 11/01/2025 3:45 PM EST Surgery [facility] [address] [place] [address] Brandy Leon MD [address] [place] [address] SACRAL NEUROMODULATION EXPLANT / REMOVAL 11/28/2025 9:00 AM EST Office Visit [facility] [address] [address] Ana Cardoso PA-C [address] [place] [address] Scheduled Procedures Name Priority Associated [...] documented as of this encounter Care Teams Lead Caster Helper Relationship Specialty Start Date End Date Adams Nichole MD [address] [place] [id number] PCP - General Internal Medicine-Adolescent Medicine 10/29/25 documented as of this encounter
[2025-10-30 11:56] LABS: Hematocrit 43.1 % (37.0-47.0); Hemoglobin 14.1 g/dL (12.2-16.2); Immature Granulocytes % 0.3 %; Mean Corpuscular HGB Conc 32.7 g/dL (31.8-35.4); Mean Corpuscular Hemoglobin 27.6 pg (27.0-31.2); Mean Corpuscular Volume 84.5 fl (81-99); Nucleated Red Blood Cells % 0 %; Platelet Count 390 K/mm3 (142-424); Red Blood Count 5.10 M/mm3 (4.20-5.40); Red Cell Distribution Width-SD 40.8 fL; White Blood Count 10.5 K/mm3 (4.8-10.8)
[2025-10-30 12:34] LABS: Alanine Aminotransferase 55 U/L (12-78); Albumin Level 4.5 g/dl (3.5-5.0); Albumin/Globulin Ratio 1.4 (1.1-1.8); Alkaline Phosphatase 146 U/L (38-126); Anion Gap 8.7 mEq/L (5-15); Aspartate Amino Transferase 40 U/L (14-36); Bilirubin,Total 0.6 mg/dl (0.2-1.3); Blood Urea Nitrogen 6 mg/dl (7-17); Calcium 10.0 mg/dl (8.4-10.2); Carbon Dioxide 29 mmol/L (22.0-30.0); Chloride 99 mmol/L (98-107); Creatinine,Serum 0.70 mg/dl (0.52-1.04); Estimated Glomerular Filt Rate 86 ml/min (>60); GFR (African American) 104 ML/MIN (>60); Globulin 3.2 g/dL (1.3-3.2); Glucose 90 mg/dl (74-100); Potassium 4.7 mmoL/L (3.5-5.1); Sodium 132 mmol/L (136-145); Total Protein,Serum 7.7 g/dl (6.3-8.2)
== END 2025-10-30 23:59 | disposition home or self-care (01) ==
LOC: LAB 11:26
PROVIDERS: PCP Internal Medicine Adolescent Medicine; Visit Provider Nurse Practitioner Family
DX: Z01.812 Encounter for preprocedural laboratory examination (principal); Z01.818 Encounter for other preprocedural examination
CPT/HCPCS: 36415; 80053; 85025

== ENCOUNTER 2025-11-05 12:41 | Outpatient (CLI) | payer BC, SELFPAY ==
--- NOTE | 2025-11-05 12:47 | MR_ITS ---
PROCEDURE INFORMATION: Exam: MR Head Without and With Contrast Exam date and time: 11/05/2025 1:24 PM Age: 55 years old Clinical indication: Altered mental status/memory loss; Additional info: Cognitive changes, new onset of memory loss TECHNIQUE: Imaging protocol: Magnetic resonance imaging of the head without and with contrast. Contrast material: PROHANCE; Contrast volume: 15 ml; Contrast route: IV; COMPARISON: MR HEAD/BRAIN WO/W CON 11/05/2025 1:24 PM FINDINGS: Brain: No mass, edema, hemorrhage, or evidence for acute ischemia. Mild periventricular FLAIR intense signal and a few nonspecific foci of FLAIR intense signal in the frontal and parietal subcortical white matter. No abnormal parenchymal or leptomeningeal enhancement. Cerebral ventricles: Mild generalized age-related cerebral volume loss. No hydrocephalus. Bones: Unremarkable. Paranasal sinuses: Mild scattered paranasal sinus mucosal thickening. Mastoid air cells: Normal as visualized. No mastoid effusion. Orbital cavities: Unremarkable. Vasculature: Major intracranial vascular flow voids are preserved. Soft tissues: Unremarkable. IMPRESSION: 1. No mass, edema, hemorrhage, or evidence for acute ischemia. 2. Mild periventricular and subcortical FLAIR intense signal likely reflecting mild chronic microvascular ischemic changes.
[2025-11-05] MEDS: GADOTERIDOL INJ 20ML SYRINGE 17 ML IV (14:05)
[2025-11-05] MEDS: SODIUM CHLORIDE 0.9% 10ML SYR (RAD ONLY) 10 ML IV (14:05)
== END 2025-11-05 23:59 | disposition home or self-care (01) ==
LOC: RAD 12:42
PROVIDERS: PCP Internal Medicine Adolescent Medicine; Visit Provider Nurse Practitioner Family
DX: R90.89 Other abnormal findings on diagnostic imaging of central nervous system (principal); R41.89 Other symptoms and signs involving cognitive functions and awareness
CPT/HCPCS: 70553; A9576